=== PATIENT | male | born 1975 | race Caucasian/White ===

== ENCOUNTER 2019-08-25 18:35 | Emergency (ER) | payer OTHER, SELFPAY ==
--- NOTE | 2019-08-25 18:53 | ED.SKABFB ---
HPI - Skin/Abscess/Foreign Bdy General Chief complaint: Skin/Abscess/Foreign Body Stated complaint: Skin rash Time Seen by Provider: 08/25/19 19:03 Source: patient and RN notes reviewed Mode of arrival: ambulatory Limitations: no limitations History of Present Illness HPI narrative: 43 old male presents with concern for reaction after a tattoo. Reports in the area where a certain color ink was used his skin has opened and was oozing. He reports its tender. He reports his received the same tattoo and had the same reaction in the exact same spot. He denies surrounding redness, induration, tenderness. Denies fever, general malaise. MD complaint: other (Cellulitis) Related Data Allergies Allergy/AdvReac Type Severity Reaction Status Date / Time acetaminophen Allergy Mild NAUSEA/VOMI Verified 08/25/19 19:14 TING hydrocodone Allergy Mild NAUSEA/VOMI Verified 08/25/19 19:14 TING Review of Systems Review of Systems: Narrative: CONSTITUTIONAL: Denies malaise, chills, sweats, or fever. SKIN: Reports localized open skin, oozing at tattoo site MUSCULOSKELETAL: Denies myalgia. All systems reviewed & are unremarkable except as noted in HPI and below PMFSH Comments At time of signature, agree with nursing past medical, surgical, social and family history. There is no relevant family history pertinent to the presenting complaint Exam Narrative: Exam Narrative: GENERAL: Well-appearing, well-nourished, and in no acute distress. HEAD: Normocephalic EYES: PERRLA, conjunctivae clear ENT: Mucous membranes moist. NECK: Supple. CHEST: No respiratory distress. Speaks in full sentences. HEART: Regular rate and rhythm.Normal peripheral pulses. SKIN: Warm, dry. Localized erythema, excoriated skin noted to tattoo with red ink only NEURO: Alert and oriented x3. PSYCH: Normal mood and affect Course Course Emergency Course: Patient is aware of diagnosis, understands and agrees to treatment plan. Anticipatory guidance given. Patient agrees to follow-up as directed and is aware of reasons to seek care at the emergency department. Portions of this record may have been created with voice recognition software Vital Signs Vital signs: Vital Signs Temperature 98.4 F 08/25/19 18:55 Pulse Rate 90 08/25/19 18:55 Respiratory Rate 20 08/25/19 18:55 Blood Pressure 150/90 H 08/25/19 18:55 Pulse Oximetry 96 08/25/19 18:55 Temperature 98.4 F 08/25/19 18:55 Pulse Rate 90 08/25/19 18:55 Respiratory Rate 20 08/25/19 18:55 Blood Pressure 150/90 H 08/25/19 18:55 Pulse Oximetry 96 08/25/19 18:55 Reviewed. MDM - Skin/Abscess/Foreign Bdy MDM Narrative Medical decision making narrative: Does not appear at this time to be erythema multiforme, bullous, SJS, TEN; no evidence at this time to suggest RMSF, endocarditis or Lyme disease; patient looks well, nontoxic and is tolerating oral intake; no neurologic signs or symptoms; no headache, photophobia or neck pain; afebrile; appropriate for initial outpatient treatment; discussed the importance of follow-up, patient agrees; question, viral exanthema, contact dermatitis, allergic dermatitis, eczema, urticaria, cellulitis. No soft palate or uvula edema, no tongue, lip edema or other mucosal involvement, no respiratory compromise, no stridor, no wheezing, no wheezing, no history of syncope, no hypotension, no nausea, vomiting, or diarrhea. Instructed patient to go to nearest ER immediately for any worsening symptoms including but not limited to: fever, spreading rash, pain, sore throat, headache, dizziness, chest pain, trouble breathing, or any symptoms concerning to the patient. Critical Care Time Critical Care Time Critical Care Time: No Discharge Plan Discharge Clinical Impression: Tattoo reaction Patient Disposition: Home, Self-Care Condition: Stable Instructions: Antibiotic Form Additional Instructions: Wash twice daily with soap and water. A
[2019-08-25 18:55] VITALS: BP 150/90; PULSE 90; RESP 20; TEMP 36.9; O2SAT 96
== END 2019-08-25 19:15 | disposition home or self-care (01) ==
PROVIDERS: Emergency Provider Nurse Practitioner
DX: L81.8 Other specified disorders of pigmentation (principal); L53.9 Erythematous condition, unspecified; I10 Essential (primary) hypertension
CPT/HCPCS: 99211; G0463

== ENCOUNTER 2022-02-23 15:03 | Emergency (ER) | payer BC, MEDICAID, SELFPAY ==
--- NOTE | 2022-02-23 15:06 | ED.LOWEXIN ---
HPI - Extremity Injury (Lower) General Chief Complaint: Extremity Injury, Lower Stated Complaint: right calf pain Time Seen by Provider: 02/23/22 15:07 Source: patient and RN notes reviewed History of Present Illness HPI Narrative: Patient is a 46-year-old male who presents the urgent care with complaints of right calf pain and right knee pain and swelling. Patient states that he has had this in the past and back in October had a complete rule out for possible DVT as well as blood work. Patient states that this incident started on Thursday and is gotten better in the last 24 hours however he was sent home from his work due to his pain. Patient has been taking naproxen and was using a cane to ambulate. Currently denies of any chest pain, shortness of breath or history of DVT. Denies any trauma or injury. States that he is on his feet for long hours. No other acute complaints. No acute distress noted. Patient aware of the plan of care. Some parts of this dictation were generated by voice recognition software and may contain typographical and/or grammatical inaccuracies. Related Data Home Medications Medication Instructions Recorded Confirmed aspirin 81 mg tablet,delayed 81 mg PO DAILY 08/25/19 08/25/19 release (Lynn Low Dose Aspirin) carvedilol 25 mg tablet 25 mg PO BID 08/25/19 08/25/19 ferrous sulfate 325 mg (65 mg 325 mg PO TID 08/25/19 08/25/19 iron) tablet furosemide 80 mg tablet 40 mg PO DAILY 08/25/19 08/25/19 lisinopril 5 mg tablet 5 mg PO DAILY 08/25/19 08/25/19 potassium chloride 10 mEq 10 meq PO DAILY 08/25/19 08/25/19 capsule,extended release atorvastatin 10 mg tablet 10 mg PO DAILY 02/23/22 02/23/22 clonidine HCl 0.1 mg tablet 0.1 mg PO DAILY 02/23/22 02/23/22 losartan 50 mg tablet 50 mg PO DAILY 02/23/22 02/23/22 naproxen 500 mg tablet 500 mg PO BID PRN Pain 02/23/22 02/23/22 Allergies Allergy/AdvReac Type Severity Reaction Status Date / Time hydrocodone Allergy Mild NAUSEA/VOMI Verified 02/23/22 15:30 TING Review of Systems Review of Systems: CONSTITUTIONAL: Denies fever, chills, or sweats. EYES: Denies visual changes, redness, or discharge. ENT: Denies rhinorrhea, congestion, sore throat, or otalgia. CARDIOVASCULAR: Denies chest pain, palpitations, or edema. RESPIRATORY: Denies cough or dyspnea. GASTROINTESTINAL: Denies abdominal pain, nausea, vomiting, or diarrhea. GENITOURINARY: Denies dysuria or hematuria. SKIN: Denies rash or itching. MUSCULOSKELETAL: Reports of right knee pain and swelling and right calf pain NEUROLOGIC: Denies headache, numbness, or weakness. All other systems reviewed are negative, except as documented in HPI. PMFSH Comments At the time of my signature, I reviewed and agree with the nursing past medical, surgical, social, and family history. There is no relevant family history pertinent to the patient complaint. Exam Narrative: GENERAL: This is a well-nourished, well-developed patient, in no apparent distress. HEAD: normocephalic, atraumatic. EYES: PERRL. Sclera clear/white. Vision is grossly intact. EARS: External ears normal NOSE: External nose normal with no obvious nasal discharge, nares without redness, no rhinorrhea. THROAT: Mucous membranes moist NECK: Neck supple CARDIOVASCULAR: Regular rate and rhythm without murmurs, gallops, or rubs. RESPIRATORY: Clear to auscultation. Breath sounds equal bilaterally. No wheezes, rales, or rhonchi. SKIN: warm, intact with no suspicious lesions or rash, good texture and turgor. NEURO: awake, alert, and oriented to person, place and time. There were no obvious focal neurologic abnormalities. EXTREMITIES: Positive strong right pedal pulse with capillary refill less than 2 seconds. Mild edema to the right anterior knee with mild posterior tenderness. Range of motion to right lower extremity within normal limits. Right calf measuring 17 inches, left calf measuring 15.75 inches. Negative right Homans' sign Course Course Lev
[2022-02-23 15:12] VITALS: BP 138/64; PULSE 88; RESP 20; TEMP 36.8; O2SAT 95
== END 2022-02-23 15:35 | disposition left against medical advice (07) ==
PROVIDERS: Emergency Provider Nurse Practitioner Family
DX: M79.661 Pain in right lower leg (principal); Z79.82 Long term (current) use of aspirin; I10 Essential (primary) hypertension
CPT/HCPCS: 99212; G0463

== ENCOUNTER 2023-10-07 12:27 | Emergency (ER) | payer OTHER, SELFPAY ==
[2023-10-07 12:41] VITALS: BP 151/86; PULSE 77; RESP 18; TEMP 37.1; O2SAT 96
--- NOTE | 2023-10-07 12:55 | ED.BACK ---
HPI - Back Pain/Injury General Chief Complaint: Back Pain/Injury Stated Complaint: Lower right back pain Source: patient Mode of arrival: ambulatory Limitations: no limitations History of Present Illness HPI Narrative: 47-year-old male presented for complaint of right lower back pain for about 2-3 days. He denies known injury, but states the pain did start after lifting 35 lb packages at work. taking naproxen. Pain is intermittent, worse with certain positions such as twisting or bending over. Denies pain radiating into the hips or legs, numbness, tingling, weakness of the lower extremities, or change in gait, saddle paresthesia or loss of bowel or bladder. Related Data Home Medications Medication Instructions Recorded Confirmed aspirin 81 mg tablet,delayed 81 mg PO DAILY 08/25/19 10/07/23 release (Lynn Low Dose Aspirin) carvedilol 25 mg tablet 25 mg PO BID 08/25/19 10/07/23 furosemide 80 mg tablet 40 mg PO DAILY 08/25/19 10/07/23 potassium chloride 10 mEq 10 meq PO DAILY 08/25/19 10/07/23 capsule,extended release atorvastatin 10 mg tablet 10 mg PO DAILY 02/23/22 10/07/23 clonidine HCl 0.1 mg tablet 0.1 mg PO DAILY 02/23/22 10/07/23 losartan 50 mg tablet 50 mg PO DAILY 02/23/22 10/07/23 naproxen 500 mg tablet 500 mg PO BID PRN Pain 02/23/22 10/07/23 diltiazem HCl 120 mg 120 mg PO DAILY 10/07/23 10/07/23 capsule,extended release 24 hr metformin 500 mg tablet 500 mg PO BID 10/07/23 10/07/23 Allergies Allergy/AdvReac Type Severity Reaction Status Date / Time hydrocodone Allergy Mild NAUSEA/VOMI Verified 10/07/23 12:49 TING Review of Systems Review of Systems: CONSTITUTIONAL: Denies body aches, fever, chills EYES: Denies visual changes CARDIOVASCULAR: Denies chest pain, palpitations, or edema. RESPIRATORY: Denies cough or dyspnea. GASTROINTESTINAL: Denies abdominal pain, nausea, vomiting, or diarrhea. SKIN: Denies rash, itching, or wounds. MUSCULOSKELETAL: reports back pain NEUROLOGIC: Denies headache, numbness, tingling, or weakness. All systems reviewed & are unremarkable except as noted in HPI and below PMFSH Comments At time of signature, I have reviewed and agree with nursing past medical, surgical, social and family history unless otherwise noted. Please see nursing chart for further information. There is no relevant family history pertinent to the presenting complaint Exam Narrative: GENERAL: Well-appearing NECK: Supple. full ROM CHEST: Speaks in full sentences. No respiratory distress. HEART: Regular rate and rhythm. Normal and equal peripheral pulses. MUSC: No Vertebral point tenderness. Minimal tenderness to right lower back with palpation. BLEs with normal strength and sensation, normal range of motion No edema or ecchymosis, No open wounds, or obvious deformity; alignment normal, pulse palpable and equal bilaterally, skin warm, dry, pink. Capillary refill less than 3 seconds. Gait steady. SKIN: Warm, dry, no rash or bruising. NEURO: Alert and oriented x3. Back/Spine/Pelvis: Back/spine/pelvis image: 1. area of reported pain Course Course Emergency Course: Patient is aware of diagnosis, understands and agrees to treatment plan. Anticipatory guidance given. Patient agrees to follow-up as directed and is aware of reasons to seek care at the emergency department. Portions of this record may have been created with voice recognition software Level of Care: Express Care Visit Vital Signs Vital signs: Vital Signs Temperature 98.7 F 10/07/23 12:41 Pulse Rate 77 10/07/23 12:41 Respiratory Rate 18 10/07/23 12:41 Blood Pressure 151/86 H 10/07/23 12:41 Pulse Oximetry 96 10/07/23 12:41 Oxygen Delivery Room Air 10/07/23 12:41 Temperature 98.7 F 10/07/23 12:41 Pulse Rate 77 10/07/23 12:41 Respiratory Rate 18 10/07/23 12:41 Blood Pressure 151/86 H 10/07/23 12:41 Pulse Oximetry 96 10/07/23 12:41 Oxygen Delivery Room Air 10/07/23 12:4
== END 2023-10-07 13:11 | disposition home or self-care (01) ==
PROVIDERS: Emergency Provider Nurse Practitioner Family
DX: S39.012A Strain of muscle, fascia and tendon of lower back, initial encounter (principal); X50.0XXA Overexertion from strenuous movement or load, initial encounter; Y99.0 Civilian activity done for income or pay; I10 Essential (primary) hypertension
CPT/HCPCS: 99213; G0463

== ENCOUNTER 2024-11-14 15:59 | Emergency (ER) | payer OTHER, SELFPAY ==
--- NOTE | ~2024-11-14 | XR_ITS ---
EXAM: XR ankle LT min 3V DATE: 11/14/2024 16:37 HISTORY: medial ankle pain, rolled ankle today . COMPARISON: None available. FINDINGS: Normal mineralization. Small ossific fragment in the medial joint space, without sclerotic margins Chronic appearing medial malleolus avulsion fracture fragments are also present. No lytic or blastic lesion. Mild scattered degenerative changes. Moderate Achilles and mild plantar enthesopathy . No erosion or periosteal change. Soft tissues within normal limits. IMPRESSION: Presumed acute medial malleolus avulsion fracture fragment. Chronic appearing medial mall eolus avulsion fracture fragments are also noted. Reviewed, dictated and finalized at location K. IMPRESSION: Presumed acute medial malleolus avulsion fracture fragment. Chronic appearing medial malleolus avulsion fracture fragments are also noted.
--- OUTSIDE RECORDS SUMMARY | 2024-11-14 16:01 | XMS_ITS | Encounter Summary ---
Author Organization [facility] Address [address] [place] [address] Phone Care Team Providers Care Mapping Engineer Name Role Phone Shea Restrepo APRN, SKIP OPERATOR Primary Care P rovider Timoteo Torres MD Unavailable Lizeth Carrasquillo APRN, SKIP OPERATOR Unavailable [phone]- [phone] Reason for Visit * Reason Comments Medication Refill Encounter Details Date Type Department Care Team (Late st Contact Info) Description 04/25/2023 Refill [facility] [address] [place] [address] Shea Restrepo APRN, SKIP OPERATOR [address] [place] [address] Medication Refill Social History Tobacco Use Types Packs/Day Years Used Date Smoking Tobacco: Former Cigarettes Q uit: 10/29/2022 Smokeless Tobacco: Never Alcohol Use Standard Drinks/Week Comments No 0 (1 standard drink = 0.6 oz pur e alcohol) PHQ-2 Answer Date Recorded Total Score - Questions 1-9 0 12/13 Sexually Active Control Partners Comments Yes Sex and Gender Information Value Date Recorded Sex Assigned at Not on file Legal Sex Male 10:34 PM CDT Gender Identity Not on file Sexual Orientation Not on file documented as of this encounter Miscellaneous Notes * Telephone Encounter - Chante Ryan RN - 04/27/2023 11:58 AM RETAIL CUSTODIAL ASSOCIATE Duplicate request. [place] CUSTODIAL ASSOCIATE documented in this encounter Plan of Treatment Upcoming Encounters Date Type Department Care Team (Late st Contact Info) Description 02/03/2025 11:15 AM CDT Office Visit [facility] - Primary Care - [place] [address] [place] [address] Shea Restrepo APRN, SKIP OPERATOR [address] [place] [address] 02/03/2025 2:00 PM CDT Office Visit [facility] - Cardiology - [place] [address] [place] [phone] Lizeth Carrasquillo APRN, SKIP OPERATOR [address]2 [facility], [facility] [address] [place] [address] documented as of this encounter Visit Diagnoses Not on filedocumented in this encounter Additional Health Concerns Assessment Noted Time PHQ-9 Depression Total Score: 0 12/27/19 20 5:00 PM CDT documented as of this encounter Care Teams Mapping Engineer Relationship Specialty Start Date End Date Shea Restrepo APRN, SKIP OPERATOR [address] [place] [address] PCP - General Advanced Practice Nurse 11/01/22 Timoteo Torres MD [address] [place] [phone] Consulting Physician Pulmonary Disease 11/18/22 Lizeth Carrasquillo APRN, SKIP OPERATOR [address]2 [facility], [address] [place] [address] Nurse Practitioner Cardiology 08/05/24 documented as of this encounter
--- OUTSIDE RECORDS SUMMARY | 2024-11-14 16:02 | XMS_ITS | Encounter Summary ---
Author Organization [facility] Address [address] [place] [address] Phone Care Team Providers Care Exhibit Artist Name Role Phone Shea Restrepo APRN, NETBACKUP ENGINEER Primary Care P rovider Timoteo Torres MD Unavailable Lizeth Carrasquillo APRN, NETBACKUP ENGINEER Unavailable [phone]- [phone] Reason for Visit * Reason Comments Medication Refill Encounter Details Date Type Department Care Team (Late st Contact Info) Description 06/26/2023 Refill [facility] - Primary Care - [place] [address] [place] [address] Shea Restrepo APRN, NETBACKUP ENGINEER [address] [place] [address] Medication Refill Social History Tobacco [...] encounter Miscellaneous Notes * Telephone Encounter - Ga Bo RN - 06/26/2023 4:03 PM CST Duplicate Request Y PLAN SALESPERSON documented in this encounter Plan of Treatment Upcoming Encounters Date Type Department Care Team (Late st Contact Info) Description 02/03/2025 11:15 AM CDT Office Visit [facility] - Primary Care - [place] [address] [place] [address] Shea Restrepo APRN, NETBACKUP ENGINEER [address] [place] [address] 02/03/2025 2:00 PM CDT Office Visit [facility] - Cardiology - [place] [address] [place] [phone] Lizeth Carrasquillo APRN, NETBACKUP ENGINEER [address]2 [facility], [facility] [address] [place] [address] documented as of this encounter Visit Diagnoses Not on filedocumented in this encounter Additional Health Concerns Assessment Noted Time PHQ-9 Depression Total Score: 0 12/27/19 20 5:00 PM CDT documented as of this encounter Care Teams Exhibit Artist Relationship Specialty Start Date End Date Shea Restrepo APRN, NETBACKUP ENGINEER [address] [place] [place] [address] PCP - General Advanced Practice Nurse 11/01/22 Timoteo Torres MD [address] [place] [phone] Consulting Physician Pulmonary Disease 11/18/22 Lizeth Carrasquillo APRN, NETBACKUP ENGINEER [address] [facility], [address] [place] [address] Nurse Practitioner Cardiology 08/05/24 documented as of this encounter
--- OUTSIDE RECORDS SUMMARY | 2024-11-14 16:02 | XMS_ITS | Encounter Summary ---
Author Organization [facility] Address [address] [place] [address] Phone Care Team Providers Care University Controller Name Role Phone Shea Restrepo APRN, CRITICAL CARE NURSE Primary Care P rovider Timoteo Torres MD Unavailable Lizeth Carrasquillo APRN, CRITICAL CARE NURSE Unavailable [phone]- [phone] Reason for Visit * Reason Comments Medication Refill Encounter Details Date Type Department Care Team (Late st Contact Info) Description 12/14/2023 Refill [facility] - Primary Care - [place] [address] [place] [address] Shea Restrepo APRN, CRITICAL CARE NURSE [address] [place] [address] Medication Refill Social History Tobacco [...] Telephone Encounter - Ga Bo RN - 12/14/2023 9:13 AM CDT Duplicate Request documented in this encounter Plan of Treatment Upcoming Encounters Date Type Department Care Team (Late st Contact Info) Description 02/03/2025 11:15 AM CDT Office Visit [facility] - Primary Care - [place] [address] [place] [address] Shea Restrepo APRN, CRITICAL CARE NURSE [address] [place] [address] 02/03/2025 2:00 PM CDT Office Visit [facility] - Cardiology - [place] [address] [place] [phone] Lizeth Carrasquillo APRN, CRITICAL CARE NURSE [address]2 [facility], [facility] [address] [place] [address] documented as of this encounter Visit Diagnoses Not on filedocumented in this encounter Additional Health Concerns Assessment Noted Time PHQ-9 Depression Total Score: 0 12/27/19 20 5:00 PM CDT documented as of this encounter Care Teams University Controller Relationship Specialty Start Date End Date Shea Restrepo APRN, CRITICAL CARE NURSE [address] [place] [address] PCP - General Advanced Practice Nurse 11/01/22 Timoteo Torres MD [address] [place] [phone] Consulting Physician Pulmonary Disease 11/18/22 Lizeth Carrasquillo APRN, CRITICAL CARE NURSE [address]2 [facility], [address] [place] [address] Nurse Practitioner Cardiology 08/05/24 documented as of this encounter
--- OUTSIDE RECORDS SUMMARY | 2024-11-14 16:02 | XMS_ITS | Encounter Summary ---
Author Organization [facility] Address [address] [place] [address] Phone Care Team Providers Care Client Specialist Name Role Phone Shea Restrepo APRN, [employer] Primary Care P rovider Timoteo Torres MD Unavailable Lizeth Carrasquillo APRN, [employer] Unavailable [phone]- [phone] Reason for Visit * Reason Comments Medication Refill Encounter Details Date Type Department Care Team (Late st Contact Info) Description 09/07/2023 Refill [facility] - Primary Care - [place] [address] [place] [address] Shea Restrepo APRN, [employer] [address] [place] [address] Medication Refill Social History Tobacco [...] Telephone Encounter - Ga Bo RN - 09/07/2023 3:40 PM CDT Medication([facility]) [facility] Ref[facility] Standing Order for Pediatricand Adult Patients. Requested Prescriptions Pending Prescriptions Disp Refills losartan (COZAAR) 50 MG Tablet [Pharmacy Med Name: LOSARTAN 50MG TABLETS] 180 Tablet 0 Sig: TAKE 1 TABLET BY MOUTH IN THE MORNING AND AT BEDTIME ARB Protocol Passed - 09/07/2023 3:33 PM Passed - Serum potassium on record in past 12 months POTASSIUM Date Value Ref Range Status 11/02/2022 3.7 3.5 - 5.1 mmol/L Final Passed - BP on record in the past year Clinician-entered: BP Readings from Last 3 Encounters: 11/18/22 118/64 11/03/22 132/88 11/02/22 143/74 Patient-entered: No data recorded Passed - Visit with relevant provider in past year or upcoming 90 days Recent Visits Date Type Provider Dept 11/03/22 Office Visit Shea Restrepo APRN, CNP [facility] Showing recent visits within past 365 days and meeting all other requirements Future Appointments Date Type Provider Dept 09/11/23 Appointment Shea Restrepo APRN, CNP [facility] Showing future appointments within next 90 days and meeting all other requirements Passed - GFR on record in past 12 months GFR, EST. NONAFRICAN Date Value Ref Range Status 11/02/2022 >60 >=60 Final documented in this encounter Plan of Treatment Upcoming Encounters Date Type Department Care Team (Late st Contact Info) Description 02/03/2025 11:15 AM CDT Office Visit [facility] - Primary Care - [place] [address] [place] [phone] Shea Restrepo APRN, RAFAEL [address] [place] [address] 02/03/2025 2:00 PM CDT Office Visit [facility] - Cardiology - [place] [address] [place] [phone] Lizeth Carrasquillo APRN, [employer] [address]2 [facility] [place] [facility], [address] [place] [address] documented as of this encounter Visit Diagnoses Not on filedocumented in this encounter Additional Health Concerns Assessment Noted Time PHQ-9 Depression Total Score: 0 12/27/19 5:00 PM CDT documented as of this encounter Care Teams Client Specialist Relationship Specialty Start Date End Date Shea Restrepo APRN, [employer] [address] [place] [address] PCP - General Advanced Practice Nurse 11/01/22 Timoteo Torres MD [address] [place] [address] Consulting Physician Pulmonary Disease 11/18/22 Lizeth Carrasquillo APRN, [employer] [address] [facility], [facility] [address] [place] [address] Nurse Practitioner Cardiology 08/05/24 documented as of this encounter
--- OUTSIDE RECORDS SUMMARY | 2024-11-14 16:02 | XMS_ITS | Encounter Summary ---
Author Organization [facility] Address [address] [place] [address] Phone Care Team Providers Care Shale Processing Technician Name Role Phone Shea Restrepo APRN, PLAYER PIANO TECHNICIAN Primary Care P rovider Timoteo Torers MD Unavailable Lizeth Carrasquillo APRN, PLAYER PIANO TECHNICIAN Unavailable [phone]- [phone] Encounter Details Date Type Department Care Team (Late st Contact Info) Description 09/19/2024 Results Follow-Up [facility] - Primary Care - [place] [address] [place] [address] Shea Restrepo APRN, PLAYER PIANO TECHNICIAN [address] [place] [address] CMP (COMPREHENSIVE METABOLIC PANEL), HEMOGLOBIN A1C W/ ESTIMATED GLUCOSE, LIPID PANEL, Additional followed-up results: 2 Social History Tobacco Use Types Packs/Day Years Used Date Smoking Tobacco: Former Cigarettes Q uit: 10/29/2022 Smokeless Tobacco: Never Alcohol Use Standard Drinks/Week Comments No 0 (1 standard drink = 0.6 oz pur e alcohol) PHQ-2 Answer Date Recorded Total Score - Questions 1-9 0 05/15 Sexually Active Control Partners Comments Yes Sex and Gender Information Value Date Recorded Sex Assigned at Not on file Legal Sex Male 10:34 PM CDT Gender Identity Not on file Sexual Orientation Not on file documented as of this encounter Plan of Treatment Upcoming Encounters Date Type Department Care Team (Late st Contact Info) Description 02/03/2025 11:15 AM CDT Office Visit [facility] - Primary Care - [place] [address] [place] [address] Shea Restrepo APRN, PLAYER PIANO TECHNICIAN [address] [place] [address] 02/03/2025 2:00 PM CDT Office Visit [facility] - Cardiology - [place] [address] [place] [address] Lizeth Carrasquillo APRN, PLAYER PIANO TECHNICIAN #2 [facility], [address] [place] [address] documented as of this encounter Goals Goal Patient Goal Type Associated Problems Recent Progress Patient-Stated? Author Help patient manage hypertension Care Plan [facility] HYPERTENSION CONCERN (PATIENT NOT ON HIGH BLOOD PRESSURE MEDICATIONS) No Shea Melara APRN, PLAYER PIANO TECHNICIAN Help patient manage systolic heart failure Care Plan [facility] HEART FAILURE CONCERNS No Shea Melara APRN, PLAYER PIANO TECHNICIAN Help patients manage type 2 diabetes Care Plan [facility] TYPE 2 DIABETES CONCERN No Shea Melara APRN, PLAYER PIANO TECHNICIAN Help patient manage blood glucose Care Plan [facility] TYPE 2 DIABETES NO MEDICATION PATTERN CONCERN No Shea Melara APRN, PLAYER PIANO TECHNICIAN documented as of this encounter Visit Diagnoses Not on filedocumented in this encounter Additional Health Concerns Active Problems Noted Date Diagnosed Date [facility] HYPERTENSION CONCERN (P ATIENT NOT ON HIGH BLOOD PRESSURE MEDICATIONS) 05/27/2024 [facility] HEART FAILURE CONCERNS 05/27/2024 [facility] TYPE 2 DIABETES CONCERN 05/27/2024 [facility] TYPE 2 DIABETES NO MEDICATION PATTERN TIO RN 05/27/2024 Assessment Noted Time PHQ-9 Depression Total Score: 0 05/27/20 24 11:18 AM NEWSPERSON documented as of this encounter Care Teams Shale Processing Technician Relationship Specialty Start Date End Date Shea Restrepo APRN, PLAYER PIANO TECHNICIAN [address] [place] [address] PCP - General Advanced Practice Nurse 11/01/22 Timoteo Torres MD [address] [place] [address] Consulting Physician Pulmonary Disease 11/18/22 Lizeth Carrasquillo APRN, PLAYER PIANO TECHNICIAN #[address] [address] Nurse Practitioner Cardiology 08/05/24 documented as of this encounter
--- OUTSIDE RECORDS SUMMARY | 2024-11-14 16:02 | XMS_ITS | Encounter Summary ---
Author Organization [facility] Address [address] [place] [address] Phone Care Team Providers Care Correctional Nurse Name Role Phone Shea Restrepo APRN, AMUSEMENT OR RECREATION CARD CHECKER Primary Care P rovider Timoteo Torres MD Unavailable Lizeth Carrasquillo APRN, AMUSEMENT OR RECREATION CARD CHECKER Unavailable [phone]- [phone] Reason for Visit * Reason Comments Medication Refill Encounter Details Date Type Department Care Team (Late st Contact Info) Description 11/02/2023 Refill [facility] - Primary Care - [place] [address] [place] [address] Shea Restrepo APRN, AMUSEMENT OR RECREATION CARD CHECKER [address] [place] [address] Medication Refill Social History Tobacco [...] encounter Miscellaneous Notes * Telephone Encounter - Pearl Ca RN - 11/02/2023 10:26 AM CDT Medication(s) refilled and signed per [facility] Chronic Medication Refill Standing Order for Pediatricand Adult Patients. Requested Prescriptions Pending Prescriptions Disp Refills atorvastatin (LIPITOR) 10 MG Tablet [Pharmacy Med Name: ATORVASTATIN 10MG TABLETS] 90 Tablet 1 Sig: TAKE 1 TABLET BY MOUTH DAILY Hmg CoA Reductase Inhibitors Protocol Passed - 11/02/2023 8:09 AM Passed - Visit with relevant provider in past 12 months or upcoming 90 days Recent Visits Date Type Provider Dept 09/11/23 Office Visit Shea Restrepo APRN, RAFAEL [facility] 11/03/22 Office Visit Shea Restrepo APRN, RAFAEL [facility] Showing recent visits within past 365 days and meeting all other requirements Future Appointments Date Type Provider Dept 12/11/23 Appointment Shea Restrepo APRN, RAFAEL [facility] Showing future appointments within next 90 days and meeting all other requirements Passed - Lipid panel in past 12 months LDL Date Value Ref Range Status 09/26/2023 73 <130 mg/dL Final HDL CHOLESTEROL Date Value Ref Range Status 09/26/2023 36 (L) >40 mg/dL Final CHOLESTEROL Date Value Ref Range Status 09/26/2023 135 <200 mg/dL Final TRIGLYCERIDES Date Value Ref Range Status 09/26/2023 132 <150 mg/dL Final VLDL Date Value Ref Range Status 09/26/2023 26 10 - 50 mg/dL Final CHOL/HDL RATIO Date Value Ref Range Status 09/26/2023 3.8 0.0 - 4.4 Final NON-HDL CHOLESTEROL Date Value Ref Range Status 09/26/2023 99 <130 mg/dL Final Passed - CMP in past 12 months SODIUM Date Value Ref Range Status 09/26/2023 148 (H) 136 - 145 mmol/L Final POTASSIUM Date Value Ref Range Status 09/26/2023 3.7 3.5 - 5.1 mmol/L Final CHLORIDE Date Value Ref Range Status 09/26/2023 112 (H) 98 - 107 mmol/L Final CO2, VENOUS Date Value Ref Range Status 09/26/2023 27 22 - 30 mmol/L Final ANION GAP Date Value Ref Range Status 09/26/2023 12.7 <18.0 mmol/L Final GLUCOSE Date Value Ref Range Status 09/26/2023 178 (H) 70 - 99 mg/dL Final BUN Date Value Ref Range Status 09/26/2023 14 9 - 21 mg/dL Final CREATININE, BLOOD Date Value Ref Range Status 09/26/2023 1.04 0.70 - 1.30 mg/dL Final BUN/CREATININE RATIO Date Value Ref Range Status 09/26/2023 13 12 - 20 ratio Final TOTAL PROTEIN Date Value Ref Range Status 09/26/2023 7.5 6.3 - 8.2 g/dL Final ALBUMIN Date Value Ref Range Status 09/26/2023 3.7 3.5 - 5.0 g/dL Final A/G RATIO Date Value Ref Range Status 09/26/2023 1.0 1.0 - 2.2 Final CALCIUM Date Value Ref Range Status 09/26/2023 9.1 8.7 - 10.5 mg/dL Final T BILI Date Value Ref Range Status 09/26/2023 0.3 0.2 - 1.2 mg/dL Final SGOT (AST) Date Value Ref Range Status 09/26/2023 25 5 - 34 U/L Final SGPT (ALT) Date Value Ref Range Status 09/26/2023 40 0 - 55 U/L Final ALKALINE PHOSPHATASE Date Value Ref Range Status 09/26/2023 110 40 - 150 U/L Final GFR, EST. NONAFRICAN Date Value Ref Range Status 09/26/2023 >60 >=60 Final GFR, EST. Date Value Ref Range Status 09/26/2023 >60 >=60 Final GFR, ESTIMATED Date Value Ref Range Status 09/26/2023 >60 >=60 Final Comment: Creatinine Clearance is the preferred criteria for selecting drug dose adjustments in renally impaired patients. The GFR is provided as additional pertinent clinical information. GFR is reported in mL/min/1.73 sq m. Calculation based on the Chronic Kidney Disease Epidemiology Collaboration (CKD- EPI) equation refitwithout adjustment for race. IS THE PATIENT REQUIRED TO BE FASTING? Date Value Ref Range Status 09/26/2023 No Final documented in this encounter Plan of Treatment Upcoming Encounters Date Type Department Care Team (Late st Contact Info) Description 02/03/2025 11:15 AM CDT Office Visit [facility] - Primary Care - [place] [address] [place] [address] Shea Restrepo APRN, RAFAEL [address] [place] [address] 02/03/2025 2:00 PM CDT Office Visit [facility] Medical [facility] - Cardiology - [place] [address] [place] [address] Lizeth Carrasquillo APRN, AMUSEMENT OR RECREATION CARD CHECKER #[address] [facility], [facility] [address] [place] [address] documented as of this encounter Visit Diagnoses Diagnosis Hypertriglyceridemia Pure hyperglyceridemia documented in this encounter Additional Health Concerns Assessment Noted Time PHQ-9 Depression Total Score: 0 12/27/19 5:00 PM CDT documented as of this encounter Care Teams Correctional Nurse Relationship Specialty Start Date End Date Shea Restrepo APRN, AMUSEMENT OR RECREATION CARD CHECKER [address] [place] [address] PCP - General Advanced Practice Nurse 11/01/22 Timoteo Torres MD [address] [place] [address] Consulting Physician Pulmonary Disease 11/18/22 Lizeth Carrasquillo APRN, AMUSEMENT OR RECREATION CARD CHECKER #[address] [facility], [address] [place] [address] Nurse Practitioner Cardiology 08/05/24 documented as of this encounter
--- OUTSIDE RECORDS SUMMARY | 2024-11-14 16:02 | XMS_ITS | Encounter Summary ---
Author Organization [facility] Address [address] [place] [address] Phone Care Team Providers Care Aprn Name Role Phone Shea Restrepo APRN, DATA CENTER PROJECT MANAGER Primary Care P rovider Timoteo Torres MD Unavailable Lizeth Carrasquillo APRN, DATA CENTER PROJECT MANAGER Unavailable [phone]- [phone] Reason for Visit * Reason Comments Medication Refill Encounter Details Date Type Department Care Team (Late st Contact Info) Description 05/21/2023 Refill [facility] - Primary Care - [place] [address] [place] [address] Ghulam Morales PAC [address] [place] [address] Medication Refill Social History Tobacco Use Types [...] encounter Miscellaneous Notes * Telephone Encounter - Aliya Norris RN - 05/21/2023 9:00 AM CONTRACT SPECIALIST Requested too soon. Per [facility], dispensed 05-15-23 as a 30-day supply RACT SPECIALIST documented in this encounter Plan of Treatment Upcoming Encounters Date Type Department Care Team (Late st Contact Info) Description 02/03/2025 11:15 AM CDT Office Visit [facility] - Primary Care - [place] [address] [place] [address] Shea Restrepo APRN, DATA CENTER PROJECT MANAGER [address] [place] [address] 02/03/2025 2:00 PM CDT Office Visit [facility] - Cardiology - [place] [address] [place] [address] Lizeth Carrasquillo APRN, DATA CENTER PROJECT MANAGER #[address] [address] documented as of this encounter Visit Diagnoses Not on filedocumented in this encounter Additional Health Concerns Assessment Noted Time PHQ-9 Depression Total Score: 0 12/27/19 5:00 PM CDT documented as of this encounter Care Teams Aprn Relationship Specialty Start Date End Date Shea Restrepo APRN, DATA CENTER PROJECT MANAGER [address] [place] [address] PCP - General Advanced Practice Nurse 11/01/22 Timoteo Torres MD #2 [place] [address] Consulting Physician Pulmonary Disease 11/18/22 Lizeth Carrasquillo APRN, DATA CENTER PROJECT MANAGER #2 [facility], [address] [place] [address] Nurse Practitioner Cardiology 08/05/24 documented as of this encounter
--- OUTSIDE RECORDS SUMMARY | 2024-11-14 16:02 | XMS_ITS | Encounter Summary ---
Author Organization [facility] Address [address] [place] [address] Phone Care Team Providers Care White Work Cleaner Name Role Phone Marianela Tompkins APRN, SERVICES MGR Primary Care Provider Shea Restrepo APRN, SERVICES MGR Primary Care P rovider Timoteo Torres MD Unavailable Lizeth Carrasquillo APRN, SERVICES MGR Unavailable [phone]- [phone] Reason for Visit * Reason Comments Medication Refill Encounter Details Date Type Department Care Team (Late st Contact Info) Description 04/23/2020 Refill [facility] - Family Medicine [facility] [address] [place] [address] Marianela Tompkins APRN, SERVICES MGR [address] [place] [address] Medication Refill Social History Tobacco Use Types Packs/Day Years Used Date Smoking Tobacco: Former Cigarettes 0.3 1 2 016 - 2016 Smokeless Tobacco: Never Alcohol Use Standard Drinks/Week [...] encounter Miscellaneous Notes * Telephone Encounter - Mine Miranda CMA - 04/23/2020 1:17 PM CST Rerouting OTR TRUCK DRIVER * Telephone Encounter - Mine Miranda CMA - 04/23/2020 1:16 PM CST Rerouting OTR TRUCK DRIVER * Telephone Encounter - Raul Zhang CMA - 04/23/2020 10:10 AM TEAM OTR TRUCK DRIVER Not a GI medication, forwarded to primary doctor OTR TRUCK DRIVER documented in this encounter Plan of Treatment Upcoming Encounters Date Type Department Care Team (Late st Contact Info) Description 02/03/2025 11:15 AM CDT Office Visit [facility] - Primary Care - [place] [address] [place] [address] Shea Restrepo APRN, SERVICES MGR [address] [place] [address] 02/03/2025 2:00 PM CDT Office [facility] - Cardiology - [place] [address] [place] [address] Lizeth Carrasquillo APRN, SERVICES MGR #2 [facility], [address] [address] documented as of this encounter Visit Diagnoses Not on filedocumented in this encounter Additional Health Concerns Infection Onset Date Last Indicated Resolved Time COVID - 19 04/25/2021 04/25/2021 05/15/2021 12:1 9 AM TEAM OTR TRUCK DRIVER COVID - 19 10/29/2022 10/29/2022 10/29/2022 2:42 PM CDT Assessment Noted Time PHQ-9 Depression Total Score: 0 12/27/19 5:00 PM CDT documented as of this encounter Care Teams White Work Cleaner Relationship Specialty Start Date End Date Marianela Tompkins APRN, SERVICES MGR [address] [place] [address] PCP - General Advanced Practice Nurse 12/27/19 Shea Restrepo APRN, SERVICES MGR [address] [place] [address] PCP - General Advanced Practice Nurse 11/01/22 Timoteo Torres MD #[address] [place] [address] Consulting Physician Pulmonary Disease 11/18/22 Lizeth Carrasquillo APRN, SERVICES MGR #2 [facility] [address] [place] [address] Nurse Practitioner Cardiology 08/05/24 documented as of this encounter
--- OUTSIDE RECORDS SUMMARY | 2024-11-14 16:02 | XMS_ITS | Encounter Summary ---
Author Organization [facility] Address [address] [place] [address] Phone Care Team Providers Care Nursing Home Director Name Role Phone Shea Restrepo APRN, FEDERAL JUDICIAL LAW CLERK Primary Care P rovider Timoteo Torres MD Unavailable Lizeth Carrasquillo APRN, FEDERAL JUDICIAL LAW CLERK Unavailable [phone]- [phone] Reason for Visit * Reason Comments Medication Refill Encounter Details Date Type Department Care Team (Late Contact Info) Description 07/26/2023 Refill [facility] - Family Medicine [facility] [address] [place] [address] Shea Restrepo APRN, FEDERAL JUDICIAL LAW CLERK [address] [place] [address] Medication Refill Social History Tobacco [...] Encounters Date Type Department Care Team (Late Contact Info) Description 02/03/2025 11:15 AM CDT Office Visit [facility] Medical [facility] - Primary Care - [place] [address] [place] [address] Shea Restrepo APRN, RAFAEL [address] [place] [address] 02/03/2025 2:00 PM CDT Office Visit [facility] - Cardiology - [place] [address] [place] [address] Lizeth Carrasquillo APRN, FEDERAL JUDICIAL LAW CLERK #2 [facility], [facility] [address] [place] [address] documented as of this encounter Visit Diagnoses Diagnosis Essential hypertension Unspecified essential hypertension documented in this encounter Additional Health Concerns Assessment Noted Time PHQ-9 Depression Total Score: 0 12/27/19 5:00 PM CDT documented as of this encounter Care Teams Nursing Home Director Relationship Specialty Start Date End Date Shea Restrepo APRN, RAFAEL [address] [place] [address] PCP - General Advanced Practice Nurse 11/01/22 Timoteo Torres MD [address] [place] [address] Consulting Physician Pulmonary Disease 11/18/22 Lizeth Carrasquillo APRN, FEDERAL JUDICIAL LAW CLERK #2 [facility], [facility] [address] [place] [address] Nurse Practitioner Cardiology 08/05/24 documented as of this encounter
--- OUTSIDE RECORDS SUMMARY | 2024-11-14 16:02 | XMS_ITS | Encounter Summary ---
Author Organization [facility] Address [address] [place] [address] Phone Care Team Providers Care Employee Benefits Coordinator Name Role Phone Tea Richey November [facility] Primary Care Provider [phone] Marianela Tompkins APRN, HEATING PLANT SUPERINTENDENT Primary Care Provider Shea Restrepo APRN, HEATING PLANT SUPERINTENDENT Primary Care P rojanetder Timoteo Torres MD Unavailable Lizeth Carrasquillo APRN, HEATING PLANT SUPERINTENDENT Unavailable [phone]- [phone] Reason for Visit * Reason Comments Medication Refill Encounter Details Date Type Department Care Team (Late st Contact Info) Description 12/10/2019 Refill [facility] [address] [place] [address] Tea Richey November, PAC [address] [place] [address] Medication Refill Social History Tobacco Use Types Packs/Day Years Used Date Smoking Tobacco: Former Cigarettes 0.3 1 2 016 - 2017 Smokeless Tobacco: Never Alcohol Use Standard Drinks/Week Comments No 0 (1 standard drink = 0.6 oz pur e alcohol) PHQ-2 Answer Date Recorded PHQ-2 Score 0 05/03/2019 Sexually Active Control Partners Comments Yes Sex and Gender Information Value Date Recorded Sex Assigned at Not on file Legal Sex Male 10:34 PM CDT Gender Identity Not on file Sexual Orientation Not on file documented as of this encounter Miscellaneous Notes * Telephone Encounter - Francisca Rebollar RN - 12/12/2019 3:26 PM CDT Notified patient. Voiced understanding. Patient stated that he was driving home from work, so he will call when he gets home to schedule an appointment. * Telephone Encounter - Tea Richey PAC - 12/12/2019 2:01 PM CDT Please advise his prescription res renewed for 90 days. He must have a new PCP prior to the expiration of this prescription. * Telephone Encounter - Marianela Mary RN - 12/12/2019 1:59 PM CDT Requested Prescriptions Pending Prescriptions Disp Refills lisinopril (PRINIVIL, ZESTRIL) 5 MG Tablet [Pharmacy Med Name: LISINOPRIL 5MG TABLETS] 90 Tab 0 Sig: TAKE 1 TABLET BY MOUTH DAILY Cardiovascular: BECKY Inhibitors Passed - 12/12/2019 1:59 PM Passed - Valid encounter within last 12 months Past Office Visits Recent Outpatient Visits 7 months ago Benign essential HTN [facility] - Tea Frank November, [facility] 11 months ago Iron deficiency anemia, unspecified iron deficiency anemia type [facility] - Tea Frank November, [facility] 1 year ago Benign essential HTN [facility] - Tea Frank November, [facility] 1 year ago Benign essential HTN [facility] - Tea Frank November, [facility] 1 year ago Bronchitis [facility] - eTa Frank November, Upcoming Appointments Passed - Last BP in normal range BP Readings from Last 1 Encounters: 05/03/19 138/80 documented in this encounter Plan of Treatment Upcoming Encounters Date Type Department Care Team (Late st Contact Info) Description 02/03/2025 11:15 AM CDT Office Visit [facility] - Primary Care - [place] [address] [place] [phone] Shea Restrepo APRN, HEATING PLANT SUPERINTENDENT [address] [place] [address] 02/03/2025 2:00 PM CDT Office Visit [facility] Group - Cardiology - [place] [address] [place] [address] Lizeth Carrasquillo APRN, HEATING PLANT SUPERINTENDENT #2 [facility], [address] [place] [address] documented as of this encounter Visit Diagnoses Not on filedocumented in this encounter Additional Health Concerns Infection Onset Date Last Indicated Resolved Time COVID - 19 04/25/2021 04/25/2021 05/15/2021 12:1 9 AM CEMENT MASON MAINTENANCE COVID - 19 10/29/2022 10/29/2022 10/29/2022 2:42 PM CDT Assessment Noted Time PHQ-9 Depression Total Score: 0 05/03/20 19 3:00 PM CEMENT MASON MAINTENANCE documented as of this encounter Care Teams Employee Benefits Coordinator Relationship Specialty Start Date End Date Tea Richey November, [address] [place] [address] PCP - General Physician Underwater Welder 12/22/16 12/26/19 Marianela Tompkins APRN, HEATING PLANT SUPERINTENDENT [address] [place] [address] PCP - General Advanced Practice Nurse 12/27/19 Shea Restrepo APRN, HEATING PLANT SUPERINTENDENT [address] [place] [address] PCP - General Advanced Practice Nurse 11/01/22 Timoteo Torres MD #2 [place] [phone] Consulting Physician Pulmonary Disease 11/18/22 Lizeth Carrasquillo APRN, HEATING PLANT SUPERINTENDENT #2 [facility], [facility] [address] [place] [address] Nurse Practitioner Cardiology 08/05/24 documented as of this encounter
--- OUTSIDE RECORDS SUMMARY | 2024-11-14 16:02 | XMS_ITS | CONTINUITY OF CARE DOCUMENT ---
Author Name mary hernandez Address Unknown Organization [facility] Address [address] [place] [address] Phone [phone] Care Team Providers Care Out Patient Therapist Name Role Phone Michael DE LA GARZA, Eligio Unavailable MAGNO ADDISON Unavailable [phone] MAGNO ADDISON Unavailable PROBLEMS Condition Status Date Provider Notes Family History of Hypertension: completed - To rodney Rodriguez MD Family History of Hypertension: completed - To rodney Rdoriguez MD Cardiovascular screening completed - Eligio Rodriguez MD Aortic dissection - repaired 2016, stable by CT 01/2019 active Eligio Rodriguez MD HTN- active Eligio Rodriguez MD Tobacco use, quit active Eligio Rodriguez MD Obesity active Eligio Rodriguez MD Snoring active Eligio Rodriguez MD ENCOUNTERS Date Type Provider Location Encounter Diag nosis - In-person encounter Office Visit Eligio Rodriguez [facility] Family History of Hypertension:Family History of Hypertension:Aortic dissection - repaired 2016, stable by CT 01/2019ObesitySnoring - In-person encounter Office Visit Eligio Rodriguez MD [facility] Cardiovascular screening - In-person encounter Office Visit Eligio Rodriguez MD [facility] Aortic dissection - repaired 2016, stable by CT 01/2019HTN-Tobacco use, quit VITAL SIGNS Date Observation Value Provider Body Mass Index (Ratio) 40.76 kg/m2 Star Rodriguez MD blood pressure, diastolic 82 mm[Hg] Mira Connor blood pressure, systolic 132 mm[Hg] LaW carmona Geeta oxygen saturation, oximetry 97 % Louisa Geeta respiratory rate E&M 18 /min Louisa Geeta pulse rate 81 /min Louisa Geeta weight E&M 309 [lb_av] [facility] E&M 73 [in_i] Louisa Geeta Body Mass Index (Ratio) 42.74 kg/m2 Star Rodriguez MD blood pressure, diastolic 80 mm[Hg] Singh [facility] blood pressure, systolic 140 mm[Hg] Jaky monzon [place] oxygen saturation, oximetry 94 % [facility] rate E&M 16 /min [facility] pulse rate 84 /min [facility] weight E&M 324 [lb_av] [facility] height E&M 73 [in_i] [facility] Body Mass Index (Ratio) 42.61 kg/m2 Star Rodriguez MD blood pressure, resting Yes Brigida [facility] blood pressure, diastolic 88 mm[Hg] Singh [facility] blood pressure, systolic 140 mm[Hg] Jaky [facility] oxygen saturation, oximetry 98 % [facility] respiratory rate E&M 16 /min [facility] pulse rate 89 /min [facility] weight E&M 323 [lb_av] [facility] height E&M 73 [in_i] [facility] ALLERGIES Allergy Name Onset Date Reaction Criticality Status VICODIN severly sick High Criticality active HISTORY OF MEDICATION USE Medication Status Instructions Dates Provider Indications Com ments ASPIRIN ADULT LOW DOSE 81 MG ORAL TABLET DELAYED RELEASE active 1 tab daily 3 [facility] LISINOPRIL 5 MG ORAL TABLET active TK 1 T PO D 2 [place] #30, 30 days supply, Prescribed by MAGNO ELIAS, Filled 01/05/2018 FUROSEMIDE 80 MG ORAL TABLET active TK 1 T PO D 9 Tomas[facility] [place] #30, 30 days supply, Prescribed by MAGNO ELIAS, Filled 01/05/2018 FERROUS SULFATE 325 (65 FE) MG ORAL TABLET active 1 tab 3x daily 5 [place] #90, 30 days supply, Prescribed by MAGNO ELIAS, Filled 01/05/2018 CARVEDILOL 25 MG ORAL TABLET active TK 1 T PO BID WC 4 [facility] [place] #60, 30 days supply, Prescribed by MAGNO ELIAS, Filled 01/05/2018 CLONIDINE HCL 0.2 MG ORAL TABLET active TK 1 T PO TID 5 [facility] [place] #90, 30 days supply, Prescribed by MAGNO ELIAS, Filled 01/06/2018 POTASSIUM CHLORIDE ER 10 MEQ ORAL TABLET EXTENDED RELEASE active TK 1 T PO D 4 [place] #30, 30 days supply, Prescribed by MAGNO ELIAS, Filled 01/28/2018 SOCIAL HISTORY Date Observation Value Provider social history E&M S moking History: Ye fam is a former smoker. Eligio Rodriguez MD social history reviewed E&M revi ewed - no changes required Eligio Rodriguez MD smoking status Former smoker Louisa Garciai keith smoking, year quit 2016 Louisa mathewsr number of years as a smoker 1.5 a Louisa Geeta smoking history, total pack/day 1/2 Louisa Geeta cigarette use yes Louisakristine Garciaive r social history reviewed E&M revi ewed - no changes required Eligio Rodriguez MD social history E&M S moking History: Ye fam is a former smoker. Eligio Rodriguez MD smoking, year quit 2016 Tomasa hallman number of years as a smoker 1.5 a Tomas[facility] [place] smoking history, total pack/day 1/2 T[facility] [place] cigarette use yes Tomasa [place] smoking status Former smoker Tomasa Chandler am social history E&M S moking History: Ye fam is a former smoker. Eligio Rodriguez MD social history reviewed E&M revi ewed - no changes required Eligio Rodriguez MD number of grandchildren Eligio Rodriguez MD [place] smoking, year quit 2016 Tomasa hallman number of years as a smoker 1.5 a Tomasa [place] smoking history, total pack/day 1/2 Tomasa [place] cigarette use yes Tomasa [place] smoking status Former smoker Tomasa Chandler am FAMILY HISTORY Family Member Condition Father Family History of Hy pertension: Father Family History of Di abetes: Mother Family History of Hy pertension: INSURANCE PROVIDERS Payer name Policy type / Coverage type [place] [employer] party ID [employer] MEDICAID Medicaid [id number] ADVANCE DIRECTIVES Name Date DISCUSSED - NO DECISION MADE TREATMENT PLAN Date Name Performer Cardiology Eligio Rodriguez MD Cardiology Eligio Rodriguez MD Cardiology Eligio Rodriguez MD Cardiology Eligio Rodriguez MD Cardiology Eligio Rodriguez MD Cardiology Eligio Rodriguez MD Cardiology Eligio Rodriguez MD Cardiology Eligio Rodriguez MD Cardiology Eligio Rodriguez MD Cardiology Eligio Rodriguez MD Cardiology Eligio Rodriguez MD Cardiology:will get records from Geoff Rodriguez MD Date Name Sleep Study Home Sleep Study Home CT Abdomen/pelvis wi th contrast CT Chest with contra st HISTORY OF PROCEDURES Procedure Date Procedure Name Provider Procedure Notes S tatus EKG Eligio Rodriguez MD completed EKG Eligio Rodriguez MD completed
--- OUTSIDE RECORDS SUMMARY | 2024-11-14 16:02 | XMS_ITS | Encounter Summary ---
Author Organization [facility] Address [address] [place] [address] Phone Care Team Providers Care Racetrack Steward Name Role Phone Shea Restrepo APRN, MAP MAKER Primary Care P rovider Timoteo Torres MD Unavailable Lizeth Carrasquillo APRN, MAP MAKER Unavailable [phone] Reason for Visit * Reason Comments Medication Refill Encounter Details Date Type Department Care Team (Late st Contact Info) Description 06/27/2023 Refill [facility] - Primary Care - [place] [address] [place] [address] Ghulam Morales PAC [address] [place] [address] Medication Refill Social History Tobacco [...] Miscellaneous Notes * Telephone Encounter - Ga Bo, RN - 06/29/2023 9:35 AM CST Duplicate Request YLENE GAS COMPRESSOR documented in this encounter Plan of Treatment Upcoming Encounters Date Type Department Care Team (Late st Contact Info) Description 02/03/2025 11:15 AM CDT Office Visit [facility] - Primary Care - [place] [address] [place] [address] Shea Restrepo APRN, MAP MAKER [address] [place] [address] 02/03/2025 2:00 PM CDT Office Visit [facility] Cardiology - [place] [address] [place] [id number] Lizeth Carrasquillo APRN, MAP MAKER [address] [facility], [address] [place] [address] documented as of this encounter Visit Diagnoses Not on filedocumented in this encounter Additional Health Concerns Assessment Noted Time PHQ-9 Depression Total Score: 0 12/27/19 5:00 PM CDT documented as of this encounter Care Teams Racetrack Steward Relationship Specialty Start Date End Date Shea Restrepo APRN, MAP MAKER [address] [place] [address] PCP - General Advanced Practice Nurse 11/01/22 Timoteo Torres MD [address] [place] [phone] Consulting Physician Pulmonary Disease 11/18/22 Lizeth Carrasquillo APRN, MAP MAKER [address] [facility], [address] [place] [address] Nurse Practitioner Cardiology 08/05/24 documented as of this encounter
--- OUTSIDE RECORDS SUMMARY | 2024-11-14 16:02 | XMS_ITS | Encounter Summary ---
Author Organization [facility] Address [address] [place] [address] Phone Care Team Providers Care Homicide Squad Lieutenant Name Role Phone Marianela Tompkins APRN, FLUTE POLISHER Primary Care Provider Shea Restrepo APRN, FLUTE POLISHER Primary Care P rovider Timoteo Torres MD Unavailable Lizeth Carrasquillo APRN, FLUTE POLISHER Unavailable [phone] Reason for Visit * Reason Comments Medication Refill Encounter Details Date Type Department Care Team (Late st Contact Info) Description 09/22/2021 Refill [facility] - Family Medicine [facility] [address] [place] [phone] Marianela Tompkins APRN, FLUTE POLISHER [address] [place] [address] Medication Refill Social History Tobacco Use Types Packs/Day Years Used Date Smoking Tobacco: Former Cigarettes 0.3 1 016 - 2016 Smokeless Tobacco: Never Alcohol [...] on file Sexual Orientation Not on file COVID-19 Exposure Response Date Recorded In the last 10 days, have yo u been in contact with someone who was confirmed or suspected to have Coronavirus/COVID-19? No / Unsure 09/07/2021 10:54 AM CDT documented as of this encounter Miscellaneous Notes * Telephone Encounter - Heidi Harris RN - 09/23/2021 9:42 AM CDT Refill request too soon. documented in this encounter Plan of Treatment Upcoming Encounters Date Type Department Care Team (Late st Contact Info) Description 02/03/2025 11:15 AM CDT Office Visit [facility] - Primary Care - [place] [address] [place] [address] Shea Restrepo SENIOR PUBLICATIONS SPECIALIST, FLUTE POLISHER [address] [place] [address] 02/03/2025 2:00 PM CDT Office Visit [facility] - Cardiology - [place] [address] [place] [address] Lizeth Carrasquillo SENIOR PUBLICATIONS SPECIALIST, FLUTE POLISHER [address] [facility], [address] [place] [address] documented as of this encounter Visit Diagnoses Diagnosis Essential hypertension Unspecified essential hypertension documented in this encounter Additional Health Concerns Infection Onset Date Last Indicated Resolved Time COVID - 19 10/29/2022 10/29/2022 10/29/2022 2:42 PM CDT Assessment Noted Time PHQ-9 Depression Total Score: 0 12/27/19 20 5:00 PM CDT documented as of this encounter Care Teams Homicide Squad Lieutenant Relationship Specialty Start Date End Date Marianela Tompkins SENIOR PUBLICATIONS SPECIALIST, FLUTE POLISHER [address] [place] [address] PCP - General Advanced Practice Nurse 12/27/19 Shea Restrepo APRN, FLUTE POLISHER [address] [place] [address] PCP - General Advanced Practice Nurse 11/01/22 Timoteo Torres MD [address] [place] [address] Consulting Physician Pulmonary Disease 11/18/22 Lizeth Carrasquillo APRN, FLUTE POLISHER [address] [address] [address] Nurse Practitioner Cardiology 08/05/24 documented as of this encounter
--- OUTSIDE RECORDS SUMMARY | 2024-11-14 16:02 | XMS_ITS | Clinical Summary ---
Author Organization [facility] Address [address] [place] [address] Phone Care Team Providers Care Vacuum Cleaner Repair Person Name Role Phone Shea Restrepo APRN, COLLIERY CLERK Primary Care P rovider Timoteo Torres MD Unavailable Lizeth Carrasquillo APRN, COLLIERY CLERK Unavailable [phone] Allergies Active Allergy Reactions Criticality Noted Date Comments Amlodipine Swelling 09/11/2023 Hydrocodone-Acetaminophen Vomiting 10/27/2016 Medications Aspirin 81 MG Tablet Take 81 mg by mouth daily. Active losartan (COZAAR) 100 MG TabletIndication s:Essential hypertension Take 1 Tablet by mouth daily. 90 Tablet 3 05/17/20 24 Active dilTIAZem (CARDIZEM CD) 180 MG CAPSULE SR 24 HRIndications:Es sential hypertension,Chr onic systolic HF (heart failure) (HCC) Take 1 Capsule by mouth daily. 90 Capsule 3 05/27/20 24 Active hydrALAZINE 50 MG Tablet Take 1 Tablet by mouth 3 times daily. 90 Tablet 08/27/19 25 Active furosemide (LASIX) 80 MG TabletIndication s:Chronic systolic HF (heart failure) (HCC) TAKE 1/2 TABLET BY MOUTH DAILY 45 Tablet 10/21/19 25 Active atorvastatin (LIPITOR) 10 MG TabletIndication s:Hypertriglycer idemia TAKE 1 TABLET BY MOUTH DAILY 90 Tablet 11/01/19 25 Active carvedilol (COREG) 25 MG TabletIndication s:Essential hypertension TAKE 1 TABLET BY MOUTH TWICE DAILY 180 Tablet 11/01/19 25 Active potassium chloride CR (KLORCON) 10 MEQ Tablet Controlled ReleaseIndicatio ns:Chronic systolic HF (heart failure) (HCC),Mixed hyperlipidemia,B enign essential HTN,Hypokalemia, Type 2 diabetes mellitus without complication, without long-term current use of insulin Take 1 Tablet by mouth daily. 90 Tablet 3 11/01/19 25 Active glipiZIDE (GLUCOTROL XL) 5 MG TABLET SR 24 HRIndications:Ty pe 2 diabetes mellitus without complication, without long-term current use of insulin Take 1 Tablet by mouth daily. 90 Tablet 3 11/01/19 25 Active furosemide (LASIX) 80 MG TabletIndication s:Chronic systolic HF (heart failure) (HCC) TAKE 1/2 TABLET BY MOUTH DAILY 45 Tablet 07/20/19 25 025 Discontinued carvedilol (COREG) 25 MG TabletIndication s:Essential hypertension TAKE 1 TABLET BY MOUTH TWICE DAILY 180 Tablet 08/01/19 25 025 Discontinued potassium chloride CR (KLORCON) 10 MEQ Tablet Controlled ReleaseIndicatio ns:Hypokalemia,C hronic systolic HF (heart failure) (HCC) TAKE 1 TABLET BY MOUTH DAILY 90 Tablet 08/01/19 25 025 Discontinued(Me d List Clean Up) atorvastatin (LIPITOR) 10 MG TabletIndication s:Hypertriglycer idemia TAKE 1 TABLET BY MOUTH DAILY 90 Tablet 08/01/19 25 025 Discontinued Active Problems Problem Noted Date Diagnosed Date Type 2 diabetes mellitus wit hout complication, without long-term current use of insulin 10/31/2024 ADRIENNE (obstructive sleep apnea) 11/18/2022 History of abdominal aortic aneurysm (AAA) 10/29 HLD (hyperlipidemia) 01/07/2021 Obesity 07/14/2019 Vitamin D deficiency 05/03/2019 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 01/22/2017 Stage 3 chronic kidney disease 01/07/2017 Dissection of thoracic aorta 12/22/2016 Benign essential HTN 12/22/2016 Chronic systolic HF (heart failure) 12/22/2016 Resolved Problems Problem Noted Date Diagnosed Date Resolved Date Acute respiratory failure with hypoxia 10/29/2022 11/18/2022 Tobacco dependence syndrome 10/29/2022 05/27/2024 COPD exacerbation 10/29/2022 11/18/2022 Family history of hypertension 08/02/2021 05/27/2024 Snoring 07/14/2019 05/27/2024 Hyperglycemia 05/03/2019 05/27/2024 Personal history of nicotine dependence 02/04/2018 05/27/2024 Dissection of unspecified site of aorta 02/04/2018 05/27/2024 Hypertriglyceridemia 08/21/2017 024 Acute on chronic systolic co ngestive heart failure 01/09/2017 09/11/2023 SOB (shortness of breath) 01/07/2017 Anemia 01/07/2017 05/27/2024 Hypokalemia 12/29/2016 05/27/2024 Morbid obesity due to excess calories 12/22/2016 05/27/2024 Encounters Date Type Department Care Team Description 10/31/2024 3:45 PM CDT Office Visit [facility] [place] [address] [place] [address] Shea Restrepo APRN, RAFAEL Chronic systolic HF (heart failure) (HCC) (Primary Dx); Mixed hyperlipidemia; Benign essential HTN; Iron deficiency anemia due to sideropenic dysphagia; Stage 3a chronic kidney disease (HCC); Hypokalemia; Type 2 diabetes mellitus without complication, without long-term current use of insulin Discharge Disposition: Discharged to home or Selfcare 10/31/2024 [facility]ill [facility] [address] [place] [phone] Shea Restrepo APRN, RAFAEL Medication Refill 10/31/2024 Travel 10/19/2024 [facility] [place] [address] [place] [phone] Shea Restrepo APRN, COLLIERY CLERK Medication Refill 09/21/2024 Telephone [facility] [address] [place] [phone] Lizeth Carrasquillo APRN, CNP 09/19/2024 Results Follow-Up [facility] - Primary Care - [place] [address] [place] [phone] Shea Restrepo APRN, RAFAEL CMP (COMPREHENSIVE METABOLIC PANEL), HEMOGLOBIN A1C W/ ESTIMATED GLUCOSE, LIPID PANEL, Additional followed-up results: 2 09/17/2024 11:00 AM CDT - 09/17/2024 11:59 PM CDT Hospital Encounter [facility] [address] [place] [phone] Lizeth Carrasquillo APRN, RAFAEL Discharge Disposition: Discharged to home or Selfcare 09/17/2024 Travel 08/31/2024 Refill [facility] - [place] [address] [place] [phone] Shea Restrepo APRN, RAFAEL Medication Refill 08/26/2024 8:00 AM CDT Clinical Support [facility] - [place] [address] [place] [address] Nurse, [facility]scar Cardiology Essential hypertension (Primary Dx) Discharge Disposition: Discharged to home or Selfcare 08/26/2024 Travel from Last 3 Months Immunizations Immunization Administration Dates Next Due Covid-19, Mrna, Lnp-s, Pf, 3 0 Mcg/0.3 Ml Dose (Pfizer) 02/08/2021,01/17/2021 Influenza Vaccine, Quadrivalent, PF 03/15,02/26/2021,05/03/2019,03/02,02/27/2017 Influenza,Split Virus,Trivalent,Injectable,PF 05/27/2024 Pneumococcal Vaccine - 13 Valent 02/27/2017 Pneumococcal conjugate PCV20 , polysaccharide [id number] conjugate, adjuvant, PF 01/31/2022 TDAP Vaccine 05/27/2024 Family History Medical History Relation Name Comments Diabetes Father Hypertension Father No Known Problems Mother Relation Name Status Comments Father Alive Mother Social History Tobacco Use Types Packs/Day Years Used Date Smoking Tobacco: Former Cigarettes Q uit: 10/29/2022 Smokeless Tobacco: Never Tobacco Cessation:Counseling Given: No Alcohol Use Standard Drinks/Week Comments No 0 (1 standard drink = 0.6 oz pur e alcohol) PHQ-2 Answer Date Recorded Total Score - Questions 1-9 0 05/15 Sexually Active Control Partners Comments Yes Sex and Gender Information Value Date Recorded Sex Assigned at Not on file Legal Sex Male 10:34 PM CDT Gender Identity Not on file Sexual Orientation Not on file Last Filed Vital Signs Vital Sign Reading Time Taken Comments Blood Pressure 160/80 10/31/2024 3:41 PM CDT Pulse 87 10/31/2024 3:41 PM CDT Temperature 36.3 C (97.3 F) 10/31/2024 3:41 PM CDT Respiratory Rate 18 10/31/2024 3:41 PM CDT Oxygen Saturation 91% 10/31/2024 3:41 PM CDT Inhaled Oxygen Concentration - - Weight 142.9 kg (315 lb) 10/31/2024 3:41 PM CDT Height 185.4 cm (6' 1) 10/31/2024 3:41 PM CDT Body Mass Index 41.56 10/31/2024 3:41 PM CDT Plan of Treatment Upcoming Encounters Date Type Department Care Team (Late st Contact Info) Description 02/03/2025 11:15 AM CDT Office Visit [facility] - Primary Care - [place] [address] [place] [phone] Shea Restrepo REPORT CHECKER, COLLIERY CLERK [address] [place] [place] [address] 02/03/2025 2:00 PM CDT Office Visit [facility] - Cardiology - [address] [place] [address] Lizeth Carrasquillo APRN, COLLIERY CLERK [address] [facility] [address] [place] [address] Health Maintenance Due Date Last Done Comments Diabetes: Eye Exam 1973 Diabetes: Foot Exam 1975 Hepatitis B Immunization (1 of 3 - 19+ 3-dose series) 1992 Cologuard 11/06/2023 Immunochemical Fecal Occult Blood 11/06/2023 12/29/2016 Zoster Immunization (1 of 2) 11/06/2023 SARS-COV-2 Immunization ( season) 2024 02/08/2021, 01/17/2021 Diabetes: Hemoglobin A1c 03/19/2025 025, 09/26/2023, 04/14/2022, Additional history exists Diabetes: Nephropathy Screening 09/17/2025 09/17/2024, 09/26/2023, 10/29/2022, Additional history exists Colonoscopy 02/19/2027 02/19/2017 Colorectal Cancer Screening 02/19/2027 Td Immunization Every 10 Years (Adults With 1 Tdap) 05/27/2034 05/27/2024 Respiratory Syncytial Virus (RSV) Immunization (Adult) (1 - 1-dose 75+ series) 2048 02/19/2017 Pneumococcal Immunization (50+ years) Completed 01/31/2022, 02/27/2017 Pneumococcal Immunization Combined Discontinued 01/31/2022, 02/27/2017 Hepatitis C Virus (HCV) Screening Completed 09/26/2023 Influenza Immunization Completed , 03/31/2022, 02/26/2021, Additional history exists TdaP Immunization Discontinued 05/27/2024 Human Papillomavirus (HPV) Immunization Aged Out No longer eligible based on patient's age to complete this topic Meningococcal Immunization (ACWY) Aged Out No longer eligible based on patient's age to complete this topic Rotavirus Immunization Aged Out No lo nger eligible based on patient's age to complete this topic Goals Goal Patient Goal Type Associated Problems Recent Progress Patient-Stated? Author Help patient manage hypertension Care Plan MCCP HYPERTENSION CONCERN (PATIENT NOT ON HIGH BLOOD PRESSURE MEDICATIONS) No Shea Melara, REPORT CHECKER, COLLIERY CLERK Help patient manage systolic heart failure Care Plan MCCP HEART FAILURE CONCERNS No Shea Melara APRN, COLLIERY CLERK Help patients manage type 2 diabetes Care Plan MCCP TYPE 2 DIABETES CONCERN No Shea Melara APRN, CNP Help patient manage blood glucose Care Plan MCCP TYPE 2 DIABETES NO MEDICATION PATTERN CONCERN No Shea Melara APRN, CNP Procedures Procedure Name Priority Date/Time Associated Diagnosis Comments ADULT TRANS THORACIC ECHO 2D COMPLT W CONT Routine 09/17/2024 12:18 PM CDT Chronic congestive heart failure, unspecified heart failure type (HCC) CBC WITH AUTO DIFFERENTIAL Routine 09/17/2024 10:54 AM CDT Essential hypertension Mixed hyperlipidemia Stage 3a chronic kidney disease (HCC) PSA SCREEN Routine 09/17/2024 10:54 AM CDT Screening for prostate cancer LIPID PANEL Routine 09/17/2024 10:54 AM CDT Hypertriglyceridemia Type 2 diabetes mellitus without complication, without long-term current use of insulin Mixed hyperlipidemia HEMOGLOBIN A1C W/ ESTIMATED GLUCOSE Routine 09/17/2024 10:54 AM CDT Type 2 diabetes mellitus without complication, without long-term current use of insulin CMP (COMPREHENSIVE METABOLIC PANEL) Routine 09/17/2024 10:54 AM CDT Essential hypertension Mixed hyperlipidemia Stage 3a chronic kidney disease (HCC) COMPLETE BLOOD COUNT (CBC) WITH DIFF Routine 09/17/2024 10:54 AM CDT Essential hypertension Mixed hyperlipidemia Stage 3a chronic kidney disease (HCC) HEPATITIS C ANTIBODY Routine 09/26/2023 11:38 AM CDT Preventative health care (Adult) POCT STOOL, OCCULT BLOOD, DIAGNOSTIC Routine 12/29/2016 3:20 PM CDT Iron deficiency anemia, unspecified iron deficiency anemia type Hematochezia from Last 3 Months or Most Recently Relevant to Health Maintenance Results * ADULT TRANS THORACIC ECHO 2D COMPLT W CONT (09/17/2024 12:18 PM CDT) AV Peak Grad mmHg 5.02 mmHg RESULTING AGENCY Mean Aortic Valve Gradient (MAVG) 3 mmHg RESULTING AGENCY LV end ping diam cm 6.7 cm RESULTING AGENCY LV end sys diam cm 5.1 cm RESULTING AGENCY Aortic Root Diam cm 3.6 cm RESULTING AGENCY LVOT Peak Steve m/sec 0.856 m/sec RESULTING AGENCY AV Peak Steve m/sec 1.12 m/sec RESULTING AGENCY MV Mean Grad mmHg 2 mmHg RESULTING AGENCY E/A Ratio 1.65 RESULTING AGENCY E/E' 13.8 RESULTING AGENCY AV Area (VTI) cm2 3.86 cm2 RESULTING AGENCY SEPTUM DIASTOLIC CM 0.8 cm RESULTING AGENCY PW DIASTOLIC CM 1.5 cm RESU LTING AGENCY LV EF(estimated)% 47 RESULTING AGENCY Anatomical Region Laterality Modality CARDIO N/A Ultrasound Narrative 09/19/2024 8:57 AM CDT Transthoracic Echocardiography Report (TTE) Patient name ROSELINE Castaneda 1975 Patient ID (UPI) [id number] Study Date09/17/2024 Technical quality: Poor visualization Limitation Reason: Body Habitus - Endomorphic (Overweight) Type of Study: TTE procedure: Adult Trans Thoracic Echo 2D Complete, Adult Trans Thoracic Echo 2D Complt W Cont. Priority:RoutineHR: 80 bpmBP: 119/81 mmHg Conclusions Summary There is mild eccentric left ventricular hypertrophy. Left ventricular end-diastolic diameter is increased at 6.7 cm. Left ventricular systolic function is mildly depressed with an estimated ejection fraction of 47%. There is mild generalized hypokinesis. No hemodynamically significant valvular abnormalities. Findings Mitral Valve There is posterior mitral annular calcification. There is no mitral stenosis or regurgitation. Aortic Valve The aortic valve is trileaflet with normal leaflet excursion. There is no evidence of aortic valve stenosis. There is no significant aortic valve insufficiency. Tricuspid Valve The tricuspid valve is normal. There is no evidence of tricuspid stenosis. There is no significant tricuspid regurgitation. There is no evidence of pulmonary hypertension. An electrophysiologic implant is noted in the right heart chambers. Pulmonic Valve The pulmonic valve structure appears normal. There is no evidence of pulmonic stenosis. There is no significant pulmonic valve regurgitation. Left Atrium Left atrium is normal in size. Left Ventricle There is mild eccentric left ventricular hypertrophy. Left ventricular end-diastolic diameter is increased at 6.7 cm. Left ventricular systolic function is mildly depressed with an estimated ejection fraction of 47%. There is mild generalized hypokinesis. Right Atrium The right atrium size is normal. Right Ventricle Normal right ventricular cavity size and normal systolic function. Pericardial Effusion The pericardium is normal. There is no pericardial effusion visualized. Pleural Effusion No pleural effusion noted. Miscellaneous Aortic root and proximal ascending aorta are normal in size. Atrial septum appears intact. IVC is normal in size and respiratory response. Aortic arch appears normal. Valves Mitral Valve Peak E-Wave: 0.93 m/s Area (continuity): 3.55 cm^2 Peak A-Wave: 0.56 m/s Mean Velocity: 0.58 m/s Peak Gradient: 3.48 mmHg Mean Gradient: 2 mmHg Deceleration Time: 180 msec Tissue Doppler E' Velocity: 0.06 m/s E/E':13.8 E/A Ratio: 1.65 E/Lat E': 13.8 E/Med E':13.6 Aortic Valve Area (continuity): 3.86 cm^2 Mean Velocity: 0.74 m/s Area (VTI):3.86 cm^2 Mean Gradient: 3 mmHg Peak Velocity: 1.12 m/s AV VTI: 23.4 cm Peak Gradient: 5.02 mmHg Tricuspid Valve Peak E-Wave: 0.58 m/s Peak Gradient: 1.35 mmHg Pulmonic Valve Peak Velocity: 0.82 m/s Mean Velocity: 0.55 m/s Peak Gradient: 2.74 mmHg Mean Gradient: 1 mmHg LVOT Peak Velocity: 0.85 m/s Mean Velocity: 0.55 m/s Peak Gradient: 3 mmHg Mean Gradient: 1 mmHg LVOT Diameter: 2.6 cm LVOT VTI: 17 cm Stroke Volume: 90 ml Stroke Volume Index: 34.75 ml/m^2 Structures Left Ventricle Diastolic Dimension: 6.7 cm Systolic Dimension: 5.1 cm Septum Diastolic: 0.8 cm Septum Systolic: 1.3 cm PW Diastolic: 1.5 cm PW Systolic: 2.1 cm Diastolic Length: 38.8 cm Systolic Length: 26.6 cm EF Calculated: 47.15% CI: 2.79 l/min*m^2 CO: 7.22 l/min RWT: 0.45 LV EDV: 130 ml FS: 23.88 % LV EDV Index: 50 m^2 LV Length: 10.2 cm LV ESV: 68.7 ml LVOT Diameter: 2.6 cm LV ESV Index: 27 m^2 Right Ventricle RVOT (PLAX) diameter:4 cm Tissue Doppler RV S': 10.4 Left Atrium LA Systolic Pressure: 19.3 mmHg Great Vessels Aorta Aorta Root:3.6 cm Contractility Score LV regional wall motion: (0-Not visualized 1-Normal 1'-Hyperkinesis 2-Hypokinesis 3-Akinesis 4-Dyskinesis 5-Aneurysm) Billing ICD 9 Codes 1) 150.9-Congestive heart failure, unspecified HF chronicity, unspecified heart failure type. Demographics Age 48 Gender Male Race Height 72.99 in. Weight 308.01 lbs. BMI (BSA) 40.64 kg/m^2 (2.59 m^2) Fish Bait Picker Eddie Ha Interpreting Foreign Samuel Referring Physician Omar DE LA GARZA Physician Procedure Note Jimmie Carrasquillo MD - 09/19/2024 Transthoracic Echocardiography Report (TTE) Patient name ROSELINE Castaneda 1975 Patient ID (UPI) [id number] Study Date09/17/2024 Technical quality: Poor visualization Limitation Reason: Body Habitus - Endomorphic (Overweight) Type of Study: TTE procedure: Adult Trans Thoracic Echo 2D Complete, Adult Trans Thoracic Echo 2D Complt W Cont. Priority:RoutineHR: 80 bpmBP: 119/81 mmHg Conclusions Summary There is mild eccentric left ventricular hypertrophy. Left ventricular end-diastolic diameter is increased at 6.7 cm. Left ventricular systolic function is mildly depressed with an estimated ejection fraction of 47%. There is mild generalized hypokinesis. No hemodynamically significant valvular abnormalities. Findings Mitral Valve There is posterior mitral annular calcification. There is no mitral stenosis or regurgitation. Aortic Valve The aortic valve is trileaflet with normal leaflet excursion. There is no evidence of aortic valve stenosis. There is no significant aortic valve insufficiency. Tricuspid Valve The tricuspid valve is normal. There is no evidence of tricuspid stenosis. There is no significant tricuspid regurgitation. There is no evidence of pulmonary hypertension. An electrophysiologic implant is noted in the right heart chambers. Pulmonic Valve The pulmonic valve structure appears normal. There is no evidence of pulmonic stenosis. There is no significant pulmonic valve regurgitation. Left Atrium Left atrium is normal in size. Left Ventricle There is mild eccentric left ventricular hypertrophy. Left ventricular end-diastolic diameter is increased at 6.7 cm. Left ventricular systolic function is mildly depressed with an estimated ejection fraction of 47%. There is mild generalized hypokinesis. Right Atrium The right atrium size is normal. Right Ventricle Normal right ventricular cavity size and normal systolic function. Pericardial Effusion The pericardium is normal. There is no pericardial effusion visualized. Pleural Effusion No pleural effusion noted. Miscellaneous Aortic root and proximal ascending aorta are normal in size. Atrial septum appears intact. IVC is normal in size and respiratory response. Aortic arch appears normal. Valves Mitral Valve Peak E-Wave: 0.93 m/s Area (continuity): 3.55 cm^2 Peak A-Wave: 0.56 m/s Mean Velocity: 0.58 m/s Peak Gradient: 3.48 mmHg Mean Gradient: 2 mmHg Deceleration Time: 180 msec Tissue Doppler E' Velocity: 0.06 m/s E/E':13.8 E/A Ratio: 1.65 E/Lat E': 13.8 E/Med E':13.6 Aortic Valve Area (continuity): 3.86 cm^2 Mean Velocity: 0.74 m/s Area (VTI):3.86 cm^2 Mean Gradient: 3 mmHg Peak Velocity: 1.12 m/s AV VTI: 23.4 cm Peak Gradient: 5.02 mmHg Tricuspid Valve Peak E-Wave: 0.58 m/s Peak Gradient: 1.35 mmHg Pulmonic Valve Peak Velocity: 0.82 m/s Mean Velocity: 0.55 m/s Peak Gradient: 2.74 mmHg Mean Gradient: 1 mmHg LVOT Peak Velocity: 0.85 m/s Mean Velocity: 0.55 m/s Peak Gradient: 3 mmHg Mean Gradient: 1 mmHg LVOT Diameter: 2.6 cm LVOT VTI: 17 cm Stroke Volume: 90 ml Stroke Volume Index: 34.75 ml/m^2 Structures Left Ventricle Diastolic Dimension: 6.7 cm Systolic Dimension: 5.1 cm Septum Diastolic: 0.8 cm Septum Systolic: 1.3 cm PW Diastolic: 1.5 cm PW Systolic: 2.1 cm Diastolic Length: 38.8 cm Systolic Length: 26.6 cm EF Calculated: 47.15% CI: 2.79 l/min*m^2 CO: 7.22 l/min RWT: 0.45 LV EDV: 130 ml FS: 23.88 % LV EDV Index: 50 m^2 LV Length: 10.2 cm LV ESV: 68.7 ml LVOT Diameter: 2.6 cm LV ESV Index: 27 m^2 Right Ventricle RVOT (PLAX) diameter:4 cm Tissue Doppler RV S': 10.4 Left Atrium LA Systolic Pressure: 19.3 mmHg Great Vessels Aorta Aorta Root:3.6 cm Contractility Score LV regional wall motion: (0-Not visualized 1-Normal 1'-Hyperkinesis 2-Hypokinesis 3-Akinesis 4-Dyskinesis 5-Aneurysm) Billing ICD 9 Codes 1) 150.9-Congestive heart failure, unspecified HF chronicity, unspecified heart failure type. Demographics Age 48 Gender Male Race Height 72.99 in. Weight 308.01 lbs. BMI (BSA) 40.64 kg/m^2 (2.59 m^2) Fish Bait Picker Eddie Samuel Referring Physician Omar DE LA GARZA Physician Lizeth Carrasquillo APRN, CNP IMG ECHO ORDERABLES Edited Result - Final * (ABNORMAL) HEMOGLOBIN A1C W/ ESTIMATED GLUCOSE (09/17/2024 10:54 AM CDT) HGB-A1C 7.7(H) 4.0 - 6.0 % 09/17/2024 11:58 AM CDT [facility] Est Average Glucose 174.3 mg/dL 09/17/2024 11:58 AM CDT [facility] Blood Venipuncture / Unknown 09/17/2024 10:54 AM CDT 09/17/2024 11:36 AM CDT Narrative [facility] - 09/17/2024 11:58 AM CDT HEMOGLOBIN A1C: DIABETIC PATIENTS: WELL-CONTROLLED: 6.2 - 7.0 INTERMEDIATE WELL-CONTROLLED: 7.0 - 9.0 POORLY-CONTROLLED: >9.0 Specimens containing greater than 5% of Hemoglobin F may result in lower than expected % HbA1C results. Shea Restrepo APRN, CNP CHEMISTRY ORDER ANN Final Result [facility] [address] [place] [address] * (ABNORMAL) CBC WITH AUTO DIFFERENTIAL (09/17/2024 10:54 AM CDT) WBC 6.89 4.00 - 12.00 10(3)/mcL 09/17/2024 12:19 PM CDT [facility] RBC 5.18 4.40 - 5.80 10(6)/mcL 09/17/2024 12:19 PM CDT [facility] HEMOGLOBIN (HGB) 13.7 13.0 - 16.5 g/dL 09/17/2024 12:19 PM CDT [facility] HEMATOCRIT (HCT) 47.0 38.0 - 50.0 % 09/17/2024 12:19 PM CDT [facility] MCV 90.7 82.0 - 96.0 fL 09/17/2024 12:19 PM CDT [facility] MCH 26.4 26.0 - 32.0 pg 09/17/2024 12:19 PM CDT [facility] MCHC 29.1(L) 31.0 - 36.0 g/dL 09/17/2024 12:19 PM CDT [facility] PLATELET COUNT 199 140 - 440 10(3)/mcL 09/17/2024 12:19 PM CDT [facility] RDW 14.5 11.8 - 15.5 % 09/17/2024 12:19 PM CDT [facility] MPV 10.6 8.0 - 12.6 fL 09/17/2024 12:19 PM CDT [facility] NEUTROPHILS 63.3 40.0 - 68.0 % 09/17/2024 12:19 PM CDT [facility] LYMPHOCYTES 23.1 19.0 - 49.0 % 09/17/2024 12:19 PM CDT [facility] MONOCYTES 10.6 3.0 - 13.0 % 09/17/2024 12:19 PM CDT [facility] EOSINOPHILS 2.6 0.0 - 8.0 % 09/17/2024 12:19 PM CDT [facility] BASOPHILS 0.4 0.0 - 1.0 % 09/17/2024 12:19 PM CDT [facility] ABSOLUTE NEUTROPHILS 4.36 1.40 - 5.30 10(3)/mcL 09/17/2024 12:19 PM CDT [facility] ABSOLUTE LYMPHOCYTES 1.59 0.90 - 3.30 10(3)/mcL 09/17/2024 12:19 PM CDT [facility] ABSOLUTE MONOCYTES 0.73 0.10 - 0.90 10(3)/mcL 09/17/2024 12:19 PM CDT [facility] ABSOLUTE EOSINOPHIL 0.18 0.00 - 0.50 10(3)/mcL 09/17/2024 12:19 PM CDT [facility] ABSOLUTE BASOPHILS 0.03 0.00 - 0.10 10(3)/mcL 09/17/2024 12:19 PM CDT [facility] NRBC PER 100 WBC 0 09/18/19 12:19 PM CDT [facility] RESULTS ARE CONSISTENT WITH PERIPHERAL SMEAR REVIEW Yes 09/17/2024 12:19 PM CDT [facility] POIKILOCYTOSIS 1+ 09/17/2024 12:19 PM CDT [facility] OVALOCYTES Present 09/17/2024 12:19 PM CDT [facility] POLYCHROMASIA 1+ 09/17/2024 12:19 PM CDT [facility] Blood Venipuncture / Unknown 09/17/2024 10:54 AM CDT 09/17/2024 11:36 AM CDT Narrative [facility] - 09/17/2024 12:19 PM CDT Hypochromia us Shea Restrepo REPORT CHECKER, COLLIERY CLERK HEMATOLOGY [place] Final Result [facility] [address] [place] [address] * PSA SCREEN (09/17/2024 10:54 AM CDT) PSA SCREEN, TOTAL 0.65 <4.00 ng/mL 09/17/2024 1:01 PM CDT [facility] Blood Venipuncture / Unknown 09/17/2024 10:54 AM CDT 09/17/2024 11:36 AM CDT Narrative [facility] - 09/17/2024 1:01 PM CDT The [facility] Total PSA assay is a Chemiluminescent Microparticle Immunoassay (CMIA) for the quantitative determination of total PSA (both free PSA and PSA complexed to [id number]) in human serum. Total PSA values obtained with different assay methods, including Raman PSA assays, cannot be used interchangeably. Shea Restrepo APRN, COLLIERY CLERK CHEMISTRY ORDER ANN Final Result [facility] [address] [place] [address] * (ABNORMAL) LIPID PANEL (09/17/2024 10:54 AM CDT) CHOLESTEROL 112 <200 mg/dL 09/17/2024 12:49 PM CDT [facility] TRIGLYCERIDES 104 <150 mg/dL 09/17/2024 12:49 PM CDT [facility] HDL CHOLESTEROL 38(L) >40 mg/dL 12:49 PM CDT [facility] LDL 53 <130 mg/dL 09/17/2024 12:49 PM CDT [facility] VLDL 21 10 - 50 mg/dL 09/17/2024 12:49 PM CDT [facility] CHOL/HDL RATIO 2.9 0.0 - 4.4 09/17/2024 12:49 PM CDT [facility] NON-HDL CHOLESTEROL 74 <130 mg/dL 09/17/2024 12:49 PM CDT [facility] IS THE PATIENT REQUIRED TO BE FASTING? Yes 09/17/2024 12:49 PM CDT [facility] HAS THE PATIENT BEEN FASTING? Yes 09/17/2024 12:49 PM CDT [facility] Blood Venipuncture / Unknown 09/17/2024 10:54 AM CDT 09/17/2024 11:36 AM CDT Shea Restrepo APRN, COLLIERY CLERK CHEMISTRY ORDER ANN Final Result [facility] [address] [place] [address] * (ABNORMAL) CMP (COMPREHENSIVE METABOLIC PANEL) (09/17/2024 10:54 AM CDT) SODIUM 148(H) 136 - 145 mmol/L 09/17/2024 1:45 PM CDT [facility] POTASSIUM 4.1 3.5 - 5.1 mmol/L 09/17/2024 1:45 PM CDT [facility] CHLORIDE 111(H) 98 - 107 mmol/L 09/17/2024 1:45 PM CDT [facility] CO2, VENOUS 31(H) 22 - 30 mmol/L 09/17/2024 1:45 PM CDT [facility] ANION GAP 10.1 <18.0 mmol/L 09/17/2024 1:45 PM CDT [facility] GLUCOSE 167(H) 70 - 99 mg/dL 09/17/2024 1:45 PM CDT [facility] BUN 16 8 - 26 mg/dL 09/17/2024 1:45 PM CDT [facility] CREATININE, BLOOD 0.97 0.70 - 1.30 mg/dL 09/17/2024 1:45 PM CDT [facility] BUN/CREATININE RATIO 16 12 - 20 ratio 09/17/2024 1:45 PM CDT [facility] TOTAL PROTEIN 7.6 6.0 - 8.0 g/dL 09/17/2024 1:45 PM CDT [facility] ALBUMIN 3.7 3.5 - 5.0 g/dL 09/17/2024 1:45 PM CDT [facility] A/G RATIO 0.9(L) 1.0 - 2.2 09/17/2024 1:45 PM CDT [facility] CALCIUM 9.0 8.7 - 10.5 mg/dL 09/17/2024 1:45 PM CDT [facility] T BILI 0.4 0.2 - 1.2 mg/dL 09/17/2024 1:45 PM CDT [facility] SGOT (AST) 24 <43 U/L 09/17/2024 1:45 PM CDT [facility] SGPT (ALT) 28 <56 U/L 09/17/2024 1:45 PM CDT [facility] ALKALINE PHOSPHATASE 109 40 - 150 U/L 09/17/2024 1:45 PM CDT [facility] IS THE PATIENT REQUIRED TO BE FASTING? No 09/17/2024 1:45 PM CDT [facility] GFR, ESTIMATED >60 >=60 09/17/2024 1:45 PM CDT [facility] Comment: Creatinine Clearance is the preferred criteria for selecting drug dose adjustments in renally impaired patients. The GFR is provided as additional pertinent clinical information. GFR is reported in mL/min/1.73 sq m. Calculation based on the Chronic Kidney Disease Epidemiology Collaboration (CKD- EPI) equation refit without adjustment for race. GFR, EST. >60 >=60 025 1:45 PM CDT [facility] GFR, EST. NONAFRICAN >60 >=60 09/17/2024 1:45 PM CDT [facility] Blood Venipuncture / Unknown 09/17/2024 10:54 AM CDT 09/17/2024 11:36 AM CDT us Shea Restrepo APRN, RAFAEL CHEMISTRY ORDER ANN Final Result [facility] [address] [place] [address] * HEPATITIS C ANTIBODY (09/26/2023 11:38 AM CDT) hepatitis C antibody 0.09 <1 S/CO 09/26/2023 10:27 PM CDT [facility] Comment: Signal/Cutoff ratio < 0.79 is Nondetected Signal/Cutoff ratio 0.80-0.99 is Grayzone Signal/Cutoff ratio > 0.99 is Detected Supplemental assays are recommended if signal/cutoff ratio is >/=1.00. Signal/cutoff ratio result >/= 5.00 is 97% predictive of positivity for recombinant immunoblot assay (RIBA) and will be reported to the [place] Department of Public [facility] as required. 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 Specimen of unknown material (specimen) 12/29/2016 3:20 PM CDT Tea Richey PAC POINT OF CARE TESTING (DEREK CROSS) Final Result from Last 3 Months or Most Recently Relevant to Health Maintenance Additional Health Concerns Active Problems Noted Date Diagnosed Date [facility] HYPERTENSION CONCERN (P ATIENT NOT ON HIGH BLOOD PRESSURE MEDICATIONS) 05/27/2024 [facility] HEART FAILURE CONCERNS 05/27/2024 [facility] TYPE 2 DIABETES CONCERN 05/27/2024 [facility] TYPE 2 DIABETES NO MEDICATION PATTERN TIO RN 05/27/2024 Insurance MEDICAID [facility] Advance Directives * Full Code (Latest Code Status on File) Date Activated Date Inactivated Comments 10/29/2022 1:54 PM 11/02/2022 3:41 PM CPR-Full Jhonathan atment: FULL ARREST: Attempt Resuscitation/CPR wit intubation and mechanical ventilation. PRE-ARREST: Use entire range of life support measures to stabilize the patient. * Full Code Date Activated Date Inactivated Comments 01/07/2017 10:05 PM 01/11/2017 4:48 PM CPR-Full Tr eatment: FULL ARREST: Attempt Resuscitation/CPR wit intubation and mechanical ventilation. PRE-ARREST: Use entire range of life support measures to stabilize the patient. Care Teams Vacuum Cleaner Repair Person Relationship Specialty Start Date End Date Shea Restrepo APRN, COLLIERY CLERK [address] [place] [address] PCP - General Advanced Practice Nurse 11/01/22 Timoteo Torres MD [address] [place] [address] Consulting Physician Pulmonary Disease 11/18/22 Lizeth Carrasquillo APRN, COLLIERY CLERK #2 [facility] [facility], [address] [place] [address] Nurse Practitioner Cardiology 08/05/24
--- OUTSIDE RECORDS SUMMARY | 2024-11-14 16:02 | XMS_ITS | Encounter Summary ---
Author Organization [facility] Address [address] [place] [address] Phone Care Team Providers Care Hair Boiler Name Role Phone Marianela Tompkins APRN, WIRE INSULATOR Primary Care Provider Shea Restrepo APRN, WIRE INSULATOR Primary Care P rovider Timoteo Torres MD Unavailable Lizeth Carrasquillo APRN, WIRE INSULATOR Unavailable [phone]- [phone] Reason for Visit * Reason Comments Medication Refill Encounter Details Date Type Department Care Team (Late st Contact Info) Description 01/23/2022 Refill [facility] - Family Medicine [facility] [address] [place] [phone] Marianela Tompkins APRN, WIRE INSULATOR [address] [place] [address] Medication Refill Social History Tobacco Use Types [...] Description 02/03/2025 11:15 AM CDT [facility] - [place] [address] [place] [id number] Shea Restrepo APRN, WIRE INSULATOR [address] [place] [address] 02/03/2025 2:00 PM CDT Office Visit [facility] - Cardiology - [place] [address] [place] [phone] Lizeth Carrasquillo APRN, WIRE INSULATOR #2 [facility] [address] [place] [address] documented as of this encounter Visit Diagnoses Diagnosis Essential hypertension Unspecified essential hypertension documented in this encounter Additional Health Concerns Infection Onset Date Last Indicated Resolved Time COVID - 19 10/29/2022 10/29/2022 10/29/2022 2:42 PM CDT Assessment Noted Time PHQ-9 Depression Total Score: 0 12/27/19 5:00 PM CDT documented as of this encounter Care Teams Hair Boiler Relationship Specialty Start Date End Date Marianela Tompkins APRN, WIRE INSULATOR [address] [place] [address] PCP - General Advanced Practice Nurse 12/27/19 Shea Restrepo APRN, WIRE INSULATOR [address] [place] [address] PCP - General Advanced Practice Nurse 11/01/22 Timoteo Torres MD [address] [place] [id number] Consulting Physician Pulmonary Disease 11/18/22 Lizeth Carrasquillo APRN, WIRE INSULATOR #2 [facility], [address] [place] [address] Nurse Practitioner Cardiology 08/05/24 documented as of this encounter
--- OUTSIDE RECORDS SUMMARY | 2024-11-14 16:02 | XMS_ITS | Encounter Summary ---
Author Organization [facility] Address [address] [place] [address] Phone Care Team Providers Care Vfx Artist Name Role Phone Marianela Tompkins APRN, EPIC MANAGER Primary Care Provider Shea Restrepo APRN, EPIC MANAGER Primary Care P rovider Timoteo Torres MD Unavailable Lizeth Carrasquillo APRN, EPIC MANAGER Unavailable [phone] Reason for Visit * Reason Comments Medication Refill Encounter Details Date Type Department Care Team (Late st Contact Info) Description 09/24/2022 Refill [facility] - Primary Care - [place] [address] [place] [address] Marianela Tompkins APRN, EPIC MANAGER [address] [place] [address] Medication Refill Social History Tobacco [...] encounter Miscellaneous Notes * Telephone Encounter - Ghulam Morales PAC - 09/24/2022 5:35 PM CDT Rx request approved. * Telephone Encounter - Pearl Ca RN - 09/24/2022 4:02 PM CDT Medication failed the protocol, provider to review and approve the medication order if appropriate. Requested Prescriptions Pending Prescriptions Disp Refills cloNIDine (CATAPRES) 0.1 MG Tablet [Pharmacy Med Name: CLONIDINE 0.1MG TABLETS] 90 Tablet 2 Sig: TAKE 1 TABLET BY MOUTH DAILY Not Delegated - Anti-adrenergic Antihypertensives Protocol Failed - 09/24/2022 3:56 PM Failed - This refill cannot be delegated Passed - Visit with relevant provider in past 12 months or upcoming 90 days Recent Visits Date Type Provider Dept 08/04/22 Office Visit Marianela Tompkins APRN, RAFAEL [facility] [place] [facility] 03/31/22 Office Visit Shea Restrepo APRN, RAFAEL [facility] [place] [facility] 01/31/22 Office Visit [facility], [facility] 10/16/21 Office Visit Iván Vidal MD [facility] Showing recent visits within past 365 days and meeting all other requirements Future Appointments No visits were found meeting these conditions. Showing future appointments within next 90 days and meeting all other requirements documented in this encounter Plan of Treatment Upcoming Encounters Date Type Department Care Team (Late st Contact Info) Description 02/03/2025 11:15 AM CDT Office Visit [facility] - Primary Care - [place] [address] [place] [address] Shea Restrepo APRN, EPIC MANAGER [address] [place] [address] 02/03/2025 2:00 PM CDT Office Visit [facility] - Cardiology - [place] [address] [place] [address] Lizeth Carrasquillo APRN, EPIC MANAGER [address] [facility], [address] [place] [address] documented as of this encounter Visit Diagnoses Not on filedocumented in this encounter Additional Health Concerns Infection Onset Date Last Indicated Resolved Time COVID - 19 10/29/2022 10/29/2022 10/29/2022 2:42 PM CDT Assessment Noted Time PHQ-9 Depression Total Score: 0 12/27/19 5:00 PM CDT documented as of this encounter Care Teams Vfx Artist Relationship Specialty Start Date End Date Marianela Tompkins APRN, EPIC MANAGER [address] [place] [address] PCP - General Advanced Practice Nurse 12/27/19 Shea Restrepo APRN, EPIC MANAGER [address] [place] [address] PCP - General Advanced Practice Nurse 11/01/22 Timoteo Torres MD [address] [place] [address] Consulting Physician Pulmonary Disease 11/18/22 Lizeth Carrasquillo APRN, EPIC MANAGER #2 [facility] [address] [place] [address] Nurse Practitioner Cardiology 08/05/24 documented as of this encounter
--- OUTSIDE RECORDS SUMMARY | 2024-11-14 16:02 | XMS_ITS | Encounter Summary ---
Author Organization [facility] Address [address] [place] [address] Phone Care Team Providers Care Core Laying Machine Operator Name Role Phone Marianela Tompkins APRN, PURCHASING DIRECTOR Primary Care Provider Shea Restrepo APRN, PURCHASING DIRECTOR Primary Care P rovider Timoteo Torres MD Unavailable Lizeth Carrasquillo APRN, PURCHASING DIRECTOR Unavailable [phone]- [phone] Reason for Visit * Reason Comments Medication Refill Encounter Details Date Type Department Care Team (Late st Contact Info) Description 04/30/2021 Refill [facility] - Primary Care - [place] [address] [place] [address] Marianela Tompkins APRN, PURCHASING DIRECTOR [address] [place] [address] Medication Refill Social History Tobacco [...] encounter Miscellaneous Notes * Telephone Encounter - Allegra Herrera RN - 04/30/2021 8:50 AM CST Patient requesting more refills. Patient has upcoming appointment so only enough refills are dispensed until after appointment. [employer] LEADER documented in this encounter Plan of Treatment Upcoming Encounters Date Type Department Care Team (Late st Contact Info) Description 02/03/2025 11:15 AM CDT Office Visit [facility] - Primary Care - [place] [address] [place] [phone] Shea Restrepo APRN, PURCHASING DIRECTOR [address] [place] [address] 02/03/2025 2:00 PM CDT Office Visit [facility] - Cardiology - [place] [address] [place] [address] Lizeth Carrasquillo APRN, PURCHASING DIRECTOR #2 [facility] [address] [place] [address] documented as of this encounter Visit Diagnoses Diagnosis Essential hypertension Unspecified essential hypertension documented in this encounter Additional Health Concerns Infection Onset Date Last Indicated Resolved Time COVID - 19 04/25/2021 04/25/2021 05/15/2021 12:1 9 AM [place] [employer] LE[employer]ER COVID - 19 10/29/2022 10/29/2022 10/29/2022 2:42 PM CDT Assessment Noted Time PHQ-9 Depression Total Score: 0 12/27/19 5:00 PM CDT documented as of this encounter Care Teams Core Laying Machine Operator Relationship Specialty Start Date End Date Marianela Tompkins APRN, PURCHASING DIRECTOR [address] [place] [address] PCP - General Advanced Practice Nurse 12/27/19 hSea Restrepo APRN, PURCHASING DIRECTOR [address] [place] [address] PCP - General Advanced Practice Nurse 11/01/22 Timoteo Torres MD [address] [place] [address] Consulting Physician Pulmonary Disease 11/18/22 Lizeth Carrasquillo APRN, PURCHASING DIRECTOR #2 [facility] [address] [address] Nurse Practitioner Cardiology 08/05/24 documented as of this encounter
--- OUTSIDE RECORDS SUMMARY | 2024-11-14 16:11 | XMS_ITS | CONTINUITY OF CARE DOCUMENT ---
Author Name mary hernandez Address Unknown Organization [facility] Address [address] [place] [address] Phone [phone] Care Team Providers Care Advertisement Distributor Name Role Phone Michael DE LA GARZA, Eligio Unavailable MAGNO ADDISON Unavailable [phone] MAGNO ADDISON Unavailable PROBLEMS Condition Status Date Provider Notes Family History of Hypertension: completed - To rodney Rodriguez MD Family History of Hypertension: completed - To rodney Rodriguez MD Cardiovascular screening completed - Eligio Rodriguez MD Aortic dissection - repaired 2016, stable by CT 01/2019 active Eligio Rodriguez MD HTN- active Eligio Rodriguez MD Tobacco use, quit active Eligio Rodriguez MD Obesity active Eligio Rodriguez MD Snoring active Eligio Rodriguez MD ENCOUNTERS Date Type Provider Location Encounter Diag nosis - In-person encounter Office Visit Eligio Rodriguez MD [facility] Family History of Hypertension:Family History of Hypertension:Aortic dissection - repaired 2016, stable by CT 01/2019ObesitySnoring - In-person encounter Office Visit Eligio Rodriguez MD [facility] Cardiovascular screening - In-person encounter Office Visit Eligio Rodriguez MD [facility] Aortic dissection - repaired 2016, stable [...] /min Louisa Geeta weight E&M 309 [lb_av] [facility]&M 73 [in_i] oLuisa Geeta Body Mass Index (Ratio) 42.74 kg/m2 Star Rodriguez MD blood pressure, diastolic 80 mm[Hg] [facility] blood pressure, systolic 140 mm[Hg] Jaky monzon [facility] oxygen saturation, oximetry 94 % [facility] rate E&M 16 /min [facility] pulse rate 84 /min [facility] weight E&M 324 [lb_av] [facility] height E&M 73 [in_i] [facility] Body Mass Index (Ratio) 42.61 kg/m2 Star Rodriguez MD blood pressure, resting Yes Brigida [facility] blood pressure, diastolic 88 mm[Hg] [facility] blood pressure, systolic 140 mm[Hg] [facility] oxygen saturation, oximetry 98 % [facility] respiratory rate E&M 16 /min [facility] pulse rate 89 /min [facility] weight E&M 323 [lb_av] [facility] height E&M 73 [in_i] [facility] ALLERGIES Allergy Name Onset Date Reaction Criticality Status VICODIN severly sick High Criticality active HISTORY OF MEDICATION USE Medication Status Instructions Dates Provider Indications Com ments ASPIRIN ADULT LOW DOSE 81 MG ORAL TABLET DELAYED RELEASE active 1 tab daily 3 [facility] LISINOPRIL 5 MG ORAL TABLET active TK 1 T PO D 2 [place] [facility] #30, 30 days supply, Prescribed by MAGNO ELIAS, Filled 01/05/2018 FUROSEMIDE 80 MG ORAL TABLET active TK 1 T PO D 9 [facility] #30, 30 days supply, Prescribed by MAGNO ELIAS, Filled 01/05/2018 FERROUS SULFATE 325 (65 FE) MG ORAL TABLET active 1 tab 3x daily 5 [place] #90, 30 days supply, Prescribed by [...] active TK 1 T PO D 4 [place] #30, 30 days supply, Prescribed by [...] Payer name Policy type / Coverage type [place] [employer] party ID [place] Medicaid [id number] ADVANCE DIRECTIVES Name Date DISCUSSED - NO [...]
--- NOTE | 2024-11-14 16:12 | ED_ITS ---
HPI - Extremity Injury (Lower) General Chief Complaint: Extremity Injury, Lower Stated Complaint: Left Injury Injury Time Seen by Provider: 11/14/24 16:12 Source: patient and RN notes reviewed Mode of arrival: ambulatory Limitations: no limitations History of Present Illness HPI Narrative: 49-year-old male Presents Express Care complaining of injury to left ankle. Patient reports reports today while he was at work is taking trash outside when he stepped on a manhole and twisted his left ankle. Patient is able to bear weight on his left foot but reports that is uncomfortable. Patient denies any falls, head injury, neck pain, or back pain, or any other injuries. Patient has a taking it for the pain. Patient denies any numbness, tingling. Patient reports having a history of a aortic dissection repair. Related Data Home Medications ?Medication ?Instructions ?Recorded ?Confirmed ?Last Taken ?Type aspirin 81 mg tablet,delayed 81 mg PO DAILY 08/25/19 10/07/23 Unknown History release (Lynn Low Dose Aspirin) carvedilol 25 mg tablet 25 mg PO BID 08/25/19 10/07/23 Unknown History furosemide 80 mg tablet 40 mg PO DAILY 08/25/19 10/07/23 Unknown History potassium chloride 10 mEq 10 meq PO DAILY 08/25/19 10/07/23 Unknown History capsule,extended release atorvastatin 10 mg tablet 10 mg PO DAILY 02/23/22 10/07/23 Unknown History clonidine HCl 0.1 mg tablet 0.1 mg PO DAILY 02/23/22 10/07/23 Unknown History losartan 50 mg tablet 50 mg PO DAILY 02/23/22 10/07/23 Unknown History naproxen 500 mg tablet 500 mg PO BID PRN Pain 02/23/22 10/07/23 Unknown History diltiazem HCl 120 mg 120 mg PO DAILY 10/07/23 10/07/23 Unknown History capsule,extended release 24 hr metformin 500 mg tablet 500 mg PO BID 10/07/23 10/07/23 Unknown History Allergies Allergy/AdvReac Type Severity Reaction Status Date / Time hydrocodone Allergy Mild NAUSEA/VOMI Verified 10/07/23 12:49 TING Review of Systems Review of Systems: CONSTITUTIONAL: Denies fever, chills, or sweats. EYES: Denies visual changes, redness, or discharge. ENT: Denies rhinorrhea, congestion, sore throat, or otalgia. CARDIOVASCULAR: Denies chest pain, palpitations, or edema. RESPIRATORY: Denies cough or dyspnea. GASTROINTESTINAL: Denies abdominal pain, nausea, vomiting, or diarrhea. GENITOURINARY: Denies dysuria or hematuria. SKIN: Denies rash, wound, or itching. MUSCULOSKELETAL: Denies back pain, joint pain, or myalgia. Positive for left ankle injury and swelling NEUROLOGIC: Denies headache, numbness, or weakness. PSYCHIATRIC: Denies anxiety or depression. All other systems reviewed are negative, except as documented in HPI. PMFSH Comments At the time of my signature, I reviewed and agree with the nursing past medical, surgical, social, and family history. There is no relevant family history pertinent to the patient complaint. Exam Narrative: GENERAL: This is a well-nourished, well-developed adult, in no apparent distress. They are non ill-appearing, nontoxic appearing. HEAD: normocephalic, atraumatic. EYES: Sclera clear/white. Vision is grossly intact. Conjunctiva normal. Extraocular movement intact. EARS: External ears normal Hearing grossly intact. NOSE: External nose normal THROAT: Mucous membranes moist NECK: Neck supple CARDIOVASCULAR: Regular rate and rhythm RESPIRATORY: Respiratory rate normal, respiratory effort nonlabored, no respiratory distress NEURO: awake, alert, and oriented to person, place and time. There were no obvious focal neurologic abnormalities. EXTREMITIES: Left ankle: No obvious deformity, injury, bruising, redness. Mild swelling to the medial ankle. Normal range of motion. Normal dorsiflexion and plantar flexion. Tenderness to palpation to the medial ankle. Capillary refill less than 3 seconds. Left pedal Pulse 2 +palpable. Normal sensation. Neurovascular status intact distal injury. Patient able is toes. Negative Gaines's test. BACK: Nontender without deformity. Course Course Emergency Course: Portions of this record may have been created with voice recognition software Level of Care: Express Care Visit Vital Signs Vital signs: Vital Signs Temperature 98.5 F 11/14/24 16:16 Pulse Rate 84 11/14/24 16:16 Respiratory Rate 20 11/14/24 16:16 Blood Pressure 152/76 H 11/14/24 16:16 Pulse Oximetry 94 11/14/24 16:16 Oxygen Delivery Room Air 11/14/24 16:16 Temperature 98.5 F 11/14/24 16:16 Pulse Rate 84 11/14/24 16:16 Respiratory Rate 20 11/14/24 16:16 Blood Pressure 152/76 H 11/14/24 16:16 Pulse Oximetry 94 11/14/24 16:16 Oxygen Delivery Room Air 11/14/24 16:16 Reviewed MDM - Extremity Injury (Lower) MDM Narrative Medical decision making narrative: X-ray left ankle showed avulsion fracture to the distal medial malleolus. Chronic appearance is noted as well. She denies ever fracturing his left ankle previously. Plan was to place patient a short-leg posterior. However during application patient stated he did not want the splint and could not be off work for an extended period time due to his benefits and refusing splinting or furt her intervention to his left ankle. Discussed with patient including but not limited to the recommended plan, risk, benefits, alternatives, his current condition. Patient is capable of making his own medical decisions and has decided to sign out against medical advice. Patient declined Jonathan wrap, splinting, crutches and left without further intervention. Differential Diagnosis Differential diagnosis: Likely ankle sprain and strain, ankle fracture and other (Foot fracture) Imaging Data Radiologist's impression: ITS Impressions Ankle X-Ray 11/14/24 16:46 IMPRESSION: Presumed acute medial malleolus avulsion fracture fragment. Chronic appearing medial malleolus avulsion fracture fragments are also noted. Critical Care Time Critical Care Time Critical Care Time: No Discharge Plan Discharge Clinical Impression: Avulsion fracture of medial malleolus Qualifiers: Encounter type: initial encounter Fracture type: closed Laterality: left Qualified Code(s): S82.52XA - Displaced fracture of medial malleolus of left tibia, initial encounter for closed fracture Patient Disposition: Left Against Medical Advice Condition: Stable Instructions: Ankle Fracture (ED) Additional Instructions: Your x-ray showed fracture to the medial malleolus of your left ankle. Your decided to go against medical advice. It is Still recommended you have splint and a follow-up with ortho or year primary care provider. Patient Language: Kiswahili Prescriptions: No Action carvedilol 25 mg Tablet 25 mg PO BID potassium chloride 10 mEq Capsule, Extended Release 10 meq PO DAILY furosemide 80 mg Tablet 40 mg PO DAILY aspirin [Lynn Low Dose Aspirin] 81 mg Tablet,Delayed Release (Dr/Ec) 81 mg PO DAILY diltiazem HCl 120 mg capsule,extended release 24hr 120 mg PO DAILY metformin 500 mg tablet 500 mg PO BID cyclobenzaprine 10 mg tablet 10 mg PO TID PRN (Reason: muscle spasm) Qty: 10 0RF naproxen 500 mg tablet 500 mg PO BID PRN (Reason: Pain) losartan 50 mg tablet 50 mg PO DAILY atorvastatin 10 mg tablet 10 mg PO DAILY clonidine HCl 0.1 mg tablet 0.1 mg PO DAILY Follow-up/Referrals: Walker Maynard MD [Physician] - UNKNOWN,DOCTOR [Primary Care Provider] - Stand Alone Forms: Work/School Release IP Time of Disposition: 17:11
[2024-11-14 16:16] VITALS: BP 152/76; PULSE 84; RESP 20; TEMP 36.9; O2SAT 94
== END 2024-11-14 17:58 | disposition left against medical advice (07) ==
DX: S82.52XA Displaced fracture of medial malleolus of left tibia, initial encounter for closed fracture (principal); X50.1XXA Overexertion from prolonged static or awkward postures, initial encounter; Y99.0 Civilian activity done for income or pay; I10 Essential (primary) hypertension; Z79.82 Long term (current) use of aspirin
CPT/HCPCS: 29515; 73610; 99214; G0463